=== PATIENT | female | born 1935 | race Two or more races ===

== ENCOUNTER 2016-02-25 09:51 | Emergency (ER) | payer OTHER ==
[~2016-02-25] VITALS: Ht 157.5 cm; Wt 63.5 kg
[2016-02-25 11:35] LABS: Basophils # (auto) 0 uL; Basophils % (auto) 0.6 % (0.0-2.0); Eosinophils # (auto) 0.4 uL; Eosinophils % (auto) 4.8 % (0.0-7.0); Hematocrit 41.3 % (36.0-46.0); Hemoglobin 13.9 g/dL (12.2-16.2); Lymphocytes # (auto) 1.6 uL; Lymphocytes % (auto) 20.8 % (10.0-50.0); Mean Corpuscular Hemoglobin 31.1 pg (28.0-32.0); Mean Corpuscular Hgb Conc. 33.5 g/dL (32.0-36.0); Mean Corpuscular Volume 92.6 fL (80.0-100.0); Mean Platelet Volume 8.4 fL (7.4-10.4); Monocytes # (auto) 0.5 uL; Monocytes % (auto) 6.3 % (0.0-12.0); Neutrophils # (auto) 5.3 uL; Neutrophils % (auto) 67.5 % (37.0-80.0); Platelet Count (auto) 372 10^3/uL (140-450); Red Cell Distribution Width 13.2 % (11.6-16.0); White Blood Cell 7.9 10^3/uL (4.4-10.8)
[2016-02-25 11:55] VITALS: BP 145/72
== END 2016-02-25 12:15 | disposition home or self-care (01) ==
LOC: ER 09:52
DX: S39.012A Strain of muscle, fascia and tendon of lower back, initial encounter (principal); E78.5 Hyperlipidemia, unspecified; I10 Essential (primary) hypertension; G89.29 Other chronic pain; K51.90 Ulcerative colitis, unspecified, without complications; X58.XXXA Exposure to other specified factors, initial encounter; Y93.89 Activity, other specified; Y99.8 Other external cause status; Y92.89 Other specified places as the place of occurrence of the external cause
CPT/HCPCS: 36415; 85025; 93005

== ENCOUNTER → 2016-07-02 | Outpatient (CLI) | payer OTHER ==
[2016-07-02 09:12] LABS: Basophils # (auto) 0 uL; Basophils % (auto) 0.4 % (0.0-2.0); Eosinophils # (auto) 0.3 uL; Eosinophils % (auto) 3.9 % (0.0-7.0); Hematocrit 40.9 % (36.0-46.0); Hemoglobin 13.9 g/dL (12.2-16.2); Lymphocytes # (auto) 1.3 uL; Lymphocytes % (auto) 18.5 % (10.0-50.0); Mean Corpuscular Hemoglobin 31.6 pg (28.0-32.0); Mean Corpuscular Hgb Conc. 34.2 g/dL (32.0-36.0); Mean Corpuscular Volume 92.4 fL (80.0-100.0); Mean Platelet Volume 9.2 fL (7.4-10.4); Monocytes # (auto) 0.4 uL; Monocytes % (auto) 6.2 % (0.0-12.0); Neutrophils # (auto) 5.1 uL; Platelet Count (auto) 346 10^3/uL (140-450); Red Cell Distribution Width 12.6 % (11.6-16.0); White Blood Cell 7.2 10^3/uL (4.4-10.8)
[2016-07-02 09:26] LABS: Urine Bilirubin Negative (Negative); Urine Blood Negative /uL (Negative); Urine Color Yellow (Yellow); Urine Glucose Normal (Normal); Urine Ketone Negative (Negative); Urine Mucus FEW (None Seen); Urine Nitrite Negative (Negative); Urine RBC <1 /hpf (0 - 4); Urine Squamous Epithelial Cell FEW /hpf (<5); Urine Urobilinogen Normal (Negative); Urine pH 7.5 (5.0-8.0)
[2016-07-02 09:34] LABS: BUN/Creatinine Ratio 12.8; Bilirubin, Total 0.4 mg/dL (0.2-1.0); Calcium 9.5 mg/dL (8.5-10.1); Potassium 4.1 mmol/L (3.5-5.1); Total Protein 7.8 g/dL (6.4-8.2)
== END | disposition home or self-care (01) ==
LOC: LAB 08:05
PROVIDERS: ATTEND Family Medicine
DX: I10 Essential (primary) hypertension (principal); E78.5 Hyperlipidemia, unspecified
CPT/HCPCS: 36415; 80053; 80061; 81001; 85025

== ENCOUNTER 2016-12-15 07:52 | Day surgery (SDC) | payer OTHER ==
[2016-12-12 10:23] LABS: INR 1.02 (0.9-1.15); Partial Thromboplastin Time 29.2 sec (22.64-33.71); Prothrombin Time 11.1 sec (9.37-12.3)
[2016-12-12 10:39] LABS: Basophils # (auto) 0 uL; Basophils % (auto) 0.6 % (0.0-2.0); Eosinophils # (auto) 0.2 uL; Eosinophils % (auto) 3.2 % (0.0-7.0); Hematocrit 37.9 % (36.0-46.0); Hemoglobin 13.3 g/dL (12.2-16.2); Lymphocytes # (auto) 1.8 uL; Lymphocytes % (auto) 26.4 % (10.0-50.0); Mean Corpuscular Hemoglobin 32.7 pg (28.0-32.0); Mean Corpuscular Hgb Conc. 35.2 g/dL (32.0-36.0); Mean Corpuscular Volume 92.9 fL (80.0-100.0); Mean Platelet Volume 8.8 fL (6.9-10.8); Monocytes # (auto) 0.6 uL; Monocytes % (auto) 8.4 % (0.0-12.0); Neutrophils # (auto) 4.3 uL; Neutrophils % (auto) 61.4 % (37.0-80.0); Nucleated Red Blood Cells % 0.1 %; Platelet Count (auto) 307 10^3/uL (140-450); Red Cell Distribution Width 12.7 % (11.8-14.3)
[~2016-12-15] VITALS: Ht 157.5 cm; Wt 62.6 kg
[~2016-12-15 07:52] MED LIST: HYDR12.56 PO; LOSA50TA6 PO; LOVA20TA4 PO
[2016-12-15] MEDS ORDERED: SODIUM CHLORIDE LOCK 10 ML ONE (08:10)
[2016-12-15] MEDS ORDERED: diphenhdrAMINE HCL 50 MG/1 ML VL ONE (08:11)
[2016-12-15] MEDS: fentaNYL CITRATE 100 MCG/2 ML VL ONE ×2 (09:42→09:48)
[2016-12-15] MEDS: MIDAZOLAM HCL 5 MG/ML-1ML VIAL ONE ×2 (09:42→09:48)
[2016-12-15 10:25] VITALS: BP 131/72
== END 2016-12-15 10:28 | disposition home or self-care (01) ==
LOC: GI 07:52
PROVIDERS: ATTEND Internal Medicine Gastroenterology
DX: K64.8 Other hemorrhoids (principal); K57.30 Diverticulosis of large intestine without perforation or abscess without bleeding; Z90.49 Acquired absence of other specified parts of digestive tract
CPT/HCPCS: 36415; 45378; 85025; 85610; 85730; J2250; J3010; J7030; 99152

== ENCOUNTER 2017-09-28 12:59 | Emergency (ER) | payer OTHER ==
[~2017-09-28] VITALS: Ht 157.5 cm; Wt 62.6 kg
[2017-09-28 15:53] LABS: Basophils # (auto) 0 uL; Basophils % (auto) 0.5 % (0.0-2.0); Eosinophils # (auto) 0.2 uL; Hematocrit 38.7 % (36.0-46.0); Hemoglobin 13.6 g/dL (12.2-16.2); Lymphocytes # (auto) 1.7 uL; Lymphocytes % (auto) 20.4 % (10.0-50.0); Mean Corpuscular Hemoglobin 32.9 pg (28.0-32.0); Mean Corpuscular Hgb Conc. 35.1 g/dL (32.0-36.0); Mean Corpuscular Volume 93.9 fL (80.0-100.0); Monocytes # (auto) 0.5 uL; Monocytes % (auto) 6.5 % (0.0-12.0); Neutrophils # (auto) 5.8 uL; Neutrophils % (auto) 70.6 % (37.0-80.0); Nucleated Red Blood Cells % 0.1 %; Platelet Count (auto) 304 10^3/uL (140-450); Red Blood Cells 4.13 10^6/uL (4.0-5.20); Red Cell Distribution Width 12.2 % (11.8-14.3); White Blood Cell 8.1 10^3/uL (4.4-10.8)
[2017-09-28 16:49] LABS: Alanine Aminotransferase 24 U/L (13-56); Albumin 3.9 g/dL (3.4-5.0); Alkaline Phosphatase 70 U/L (45-117); Anion Gap 12 (5-15); Aspartate Aminotransferase 24 U/L (15-37); BUN/Creatinine Ratio 12.2; Bilirubin, Total 0.4 mg/dL (0.2-1.0); Blood Urea Nitrogen 16 mg/dL (7-18); Calcium 8.7 mg/dL (8.5-10.1); Carbon Dioxide 25 mmol/L (21-32); Chloride 99 mmol/L (98-107); GFR African American 50 mL/min; GFR Non-African American 41 mL/min; Glucose 101 mg/dL (74-106); Potassium 3.8 mmol/L (3.5-5.1); Sodium 136 mmol/L (136-145); Total Protein 7.6 g/dL (6.4-8.2)
[2017-09-28 17:12] VITALS: BP 152/74
== END 2017-09-28 17:30 | disposition home or self-care (01) ==
LOC: ER 13:06
DX: F41.9 Anxiety disorder, unspecified (principal); E78.5 Hyperlipidemia, unspecified; I10 Essential (primary) hypertension; Z79.899 Other long term (current) drug therapy
CPT/HCPCS: 36415; 70360; 80053; 84484; 85025; 93005

== ENCOUNTER → 2017-12-11 | Outpatient (CLI) | payer OTHER ==
[~2017-12-11] MED LIST changes: +LOSA-46 PO; -LOSA50TA6 PO
== END | disposition home or self-care (01) ==
LOC: LAB 08:33
PROVIDERS: ATTEND Nurse Practitioner
DX: Z12.11 Encounter for screening for malignant neoplasm of colon (principal)
CPT/HCPCS: 82270

== ENCOUNTER 2018-01-05 11:33 | Emergency (ER) | payer OTHER ==
[~2018-01-05] VITALS: Ht 160 cm; Wt 63.5 kg
[2018-01-05 11:56] VITALS: BP 126/77
== END 2018-01-05 12:46 | disposition home or self-care (01) ==
LOC: ER 11:33
DX: B34.9 Viral infection, unspecified (principal); I10 Essential (primary) hypertension; E78.5 Hyperlipidemia, unspecified

== ENCOUNTER → 2019-11-24 | Outpatient (CLI) | payer OTHER ==
[~2019-11-24] MED LIST changes: +APIX5TAB PO; -LOSA-46 PO; +LOSA-69 PO; +MONT5CHW17 PO
[2019-11-24 09:19] LABS: Basophils # (auto) 0 10 ^3/uL (0-0.2); Basophils % (auto) 0.5 % (0.0-2.0); Eosinophils # (auto) 0.3 10 ^3/uL (0-0.8); Eosinophils % (auto) 3.6 % (0.0-7.0); Hematocrit 35.7 % (36.0-46.0); Hemoglobin 12.4 g/dL (12.2-16.2); Lymphocytes # (auto) 1.6 10 ^3/uL (0.4-5.4); Lymphocytes % (auto) 22.3 % (10.0-50.0); Mean Corpuscular Hgb Conc. 34.6 g/dL (32.0-36.0); Mean Corpuscular Volume 92.4 fL (80.0-100.0); Monocytes # (auto) 0.6 10 ^3/uL (0-1.3); Monocytes % (auto) 7.5 % (0.0-12.0); Neutrophils # (auto) 4.9 10 ^3/uL (1.6-8.6); Neutrophils % (auto) 66.1 % (37.0-80.0); Platelet Count (auto) 305 10^3/uL (140-450); Red Blood Cells 3.86 10^6/uL (4.0-5.20); Red Cell Distribution Width 12.6 % (11.8-14.3); White Blood Cell 7.4 10^3/uL (4.4-10.8)
[2019-11-24 09:23] LABS: Urine Bacteria NONE SEEN /hpf (None Seen); Urine Blood Negative /uL (Negative); Urine Hyaline Cast FEW /lpf (0 - 2); Urine Specific Gravity 1.009 (1.001-1.035); Urine WBC 1 /hpf (0 - 5)
[2019-11-24 09:40] LABS: Albumin 3.8 g/dL (3.4-5.0); Calcium 9.2 mg/dL (8.5-10.1)
[2019-11-24 09:43] LABS: Bilirubin, Total 0.6 mg/dL (0.2-1.0); Total Protein 7.4 g/dL (6.4-8.2)
== END | disposition home or self-care (01) ==
LOC: LAB 09:01
PROVIDERS: ATTEND Nurse Practitioner
DX: I10 Essential (primary) hypertension (principal); E78.5 Hyperlipidemia, unspecified
CPT/HCPCS: 36415; 80053; 80061; 81001; 84443; 85025

== ENCOUNTER → 2020-07-03 | Outpatient (CLI) | payer OTHER ==
[~2020-07-03] MED LIST changes: -MONT5CHW17 PO; +MONT5CHW23 PO
[2020-07-03 07:30] LABS: Basophils # (auto) 0 10 ^3/uL (0-0.2); Basophils % (auto) 0.6 % (0.0-2.0); Eosinophils # (auto) 0.2 10 ^3/uL (0-0.8); Eosinophils % (auto) 3.4 % (0.0-7.0); Hematocrit 36.5 % (36.0-46.0); Hemoglobin 12.9 g/dL (12.2-16.2); Lymphocytes # (auto) 1.9 10 ^3/uL (0.4-5.4); Lymphocytes % (auto) 25.8 % (10.0-50.0); Mean Corpuscular Hemoglobin 32.7 pg (28.0-32.0); Mean Corpuscular Hgb Conc. 35.3 g/dL (32.0-36.0); Mean Corpuscular Volume 92.6 fL (80.0-100.0); Monocytes # (auto) 0.6 10 ^3/uL (0-1.3); Neutrophils # (auto) 4.5 10 ^3/uL (1.6-8.6); Neutrophils % (auto) 62.2 % (37.0-80.0); Platelet Count (auto) 307 10^3/uL (140-450); Red Blood Cells 3.94 10^6/uL (4.0-5.20); White Blood Cell 7.3 10^3/uL (4.4-10.8)
[2020-07-03 07:40] LABS: Urine Bacteria NONE SEEN /hpf (None Seen); Urine Blood Negative /uL (Negative); Urine Mucus FEW (None Seen); Urine WBC 9 /hpf (0 - 5)
[2020-07-03 07:57] LABS: Albumin 3.8 g/dL (3.4-5.0); Calcium 9.1 mg/dL (8.5-10.1); Potassium 4.2 mmol/L (3.5-5.1)
[2020-07-03 08:02] LABS: BUN/Creatinine Ratio 11.3; Bilirubin, Total 0.5 mg/dL (0.2-1.0); Total Protein 7.5 g/dL (6.4-8.2)
== END | disposition home or self-care (01) ==
LOC: LAB 07:17
PROVIDERS: ATTEND Nurse Practitioner
DX: E78.5 Hyperlipidemia, unspecified (principal); I10 Essential (primary) hypertension
CPT/HCPCS: 36415; 80053; 80061; 81001; 85025

== ENCOUNTER → 2021-03-22 | Outpatient (CLI) | payer OTHER ==
[2021-03-22 09:48] LABS: Basophils # (auto) 0 10 ^3/uL (0-0.2); Basophils % (auto) 0.4 % (0.0-2.0); Eosinophils # (auto) 0.2 10 ^3/uL (0-0.8); Eosinophils % (auto) 1.8 % (0.0-7.0); Hematocrit 34.7 % (36.0-46.0); Hemoglobin 11.9 g/dL (12.2-16.2); Lymphocytes # (auto) 1.6 10 ^3/uL (0.4-5.4); Lymphocytes % (auto) 16.2 % (10.0-50.0); Mean Corpuscular Hemoglobin 30.9 pg (28.0-32.0); Mean Corpuscular Hgb Conc. 34.4 g/dL (32.0-36.0); Mean Corpuscular Volume 89.9 fL (80.0-100.0); Monocytes # (auto) 0.7 10 ^3/uL (0-1.3); Monocytes % (auto) 7.3 % (0.0-12.0); Neutrophils # (auto) 7.5 10 ^3/uL (1.6-8.6); Neutrophils % (auto) 74.3 % (37.0-80.0); Nucleated Red Blood Cells % 0.1 %; Red Blood Cells 3.86 10^6/uL (4.0-5.20); Red Cell Distribution Width 13.3 % (11.8-14.3); White Blood Cell 10.1 10^3/uL (4.4-10.8)
[2021-03-22 09:52] LABS: Potassium 4.3 mmol/L (3.5-5.1)
[2021-03-22 10:04] LABS: Albumin 3.3 g/dL (3.4-5.0); BUN/Creatinine Ratio 7.1; Bilirubin, Total 0.4 mg/dL (0.2-1.0); CRP High Sensitivity 3.63 mg/dL (< 0.3); Calcium 8.9 mg/dL (8.5-10.1); Total Protein 7.2 g/dL (6.4-8.2)
== END | disposition home or self-care (01) ==
LOC: LAB 07:56
PROVIDERS: ATTEND Internal Medicine Rheumatology
DX: M05.79 Rheumatoid arthritis with rheumatoid factor of multiple sites without organ or systems involvement (principal); M35.3 Polymyalgia rheumatica; R94.5 Abnormal results of liver function studies
CPT/HCPCS: 36415; 80053; 85025; 85652; 86141; 86200; 86431; 86704; 87340; 87902

== ENCOUNTER → 2021-04-01 | Outpatient (CLI) | payer OTHER | END | disposition home or self-care (01) | LOC: XYW 08:29 | PROVIDERS: ATTEND Internal Medicine | DX: I08.1 Rheumatic disorders of both mitral and tricuspid valves (principal) | CPT/HCPCS: 93306 ==

== ENCOUNTER → 2021-07-29 | Outpatient (CLI) | payer OTHER ==
[2021-07-29 09:50] LABS: Basophils # (auto) 0.1 10 ^3/uL (0-0.2); Basophils % (auto) 0.6 % (0.0-2.0); Eosinophils # (auto) 0.1 10 ^3/uL (0-0.8); Hematocrit 34.3 % (36.0-46.0); Hemoglobin 11.9 g/dL (12.2-16.2); Lymphocytes # (auto) 1.2 10 ^3/uL (0.4-5.4); Lymphocytes % (auto) 12.1 % (10.0-50.0); Mean Corpuscular Hgb Conc. 34.8 g/dL (32.0-36.0); Mean Corpuscular Volume 94.7 fL (80.0-100.0); Monocytes # (auto) 0.4 10 ^3/uL (0-1.3); Monocytes % (auto) 3.7 % (0.0-12.0); Neutrophils # (auto) 8.3 10 ^3/uL (1.6-8.6); Neutrophils % (auto) 82.6 % (37.0-80.0); Red Blood Cells 3.62 10^6/uL (4.0-5.20); Red Cell Distribution Width 16.9 % (11.8-14.3); White Blood Cell 10.1 10^3/uL (4.4-10.8)
[2021-07-29 10:13] LABS: Albumin 3.6 g/dL (3.4-5.0); Anion Gap 7 (5-15); Blood Urea Nitrogen 18 mg/dL (7-18); CRP High Sensitivity < 0.02 mg/dL (< 0.3); Calcium 8.5 mg/dL (8.5-10.1); Carbon Dioxide 25 mmol/L (21-32); Chloride 108 mmol/L (98-107); Glucose 111 mg/dL (74-106); Potassium 4.4 mmol/L (3.5-5.1); Sodium 140 mmol/L (136-145)
[2021-07-29 10:16] LABS: Alanine Aminotransferase 23 U/L (13-56); Alkaline Phosphatase 59 U/L (45-117); Aspartate Aminotransferase 19 U/L (15-37); BUN/Creatinine Ratio 10.9; Bilirubin, Total 0.4 mg/dL (0.2-1.0); GFR African American 38 mL/min; GFR Non-African American 31 mL/min; Total Protein 6.5 g/dL (6.4-8.2)
== END | disposition home or self-care (01) ==
LOC: LAB 09:35
PROVIDERS: ATTEND Internal Medicine Rheumatology
DX: L40.50 Arthropathic psoriasis, unspecified (principal)
CPT/HCPCS: 36415; 80053; 85025; 85652; 86141

== ENCOUNTER → 2021-08-05 | Outpatient (CLI) | payer OTHER ==
[2021-08-05 09:15] LABS: Basophils # (auto) 0.1 10 ^3/uL (0-0.2); Basophils % (auto) 0.6 % (0.0-2.0); Eosinophils # (auto) 0.1 10 ^3/uL (0-0.8); Eosinophils % (auto) 1.4 % (0.0-7.0); Hematocrit 36.4 % (36.0-46.0); Hemoglobin 12.8 g/dL (12.2-16.2); Lymphocytes # (auto) 1.9 10 ^3/uL (0.4-5.4); Lymphocytes % (auto) 19.9 % (10.0-50.0); Mean Corpuscular Hemoglobin 33.2 pg (28.0-32.0); Mean Corpuscular Hgb Conc. 35.2 g/dL (32.0-36.0); Mean Corpuscular Volume 94.2 fL (80.0-100.0); Monocytes # (auto) 0.4 10 ^3/uL (0-1.3); Monocytes % (auto) 3.9 % (0.0-12.0); Neutrophils % (auto) 74.2 % (37.0-80.0); Red Blood Cells 3.86 10^6/uL (4.0-5.20); Red Cell Distribution Width 16.6 % (11.8-14.3); White Blood Cell 9.4 10^3/uL (4.4-10.8)
[2021-08-05 09:27] LABS: Urine Bacteria NONE SEEN /hpf (None Seen); Urine Blood Negative /uL (Negative); Urine Specific Gravity 1.006 (1.001-1.035); Urine WBC <1 /hpf (0 - 5)
[2021-08-05 09:57] LABS: Potassium 3.9 mmol/L (3.5-5.1)
[2021-08-05 10:06] LABS: Albumin 3.6 g/dL (3.4-5.0); Bilirubin, Total 0.5 mg/dL (0.2-1.0); Calcium 9.2 mg/dL (8.5-10.1); Total Protein 6.8 g/dL (6.4-8.2)
== END | disposition home or self-care (01) ==
LOC: LAB 08:53
PROVIDERS: ATTEND Nurse Practitioner
DX: E78.5 Hyperlipidemia, unspecified (principal); I10 Essential (primary) hypertension
CPT/HCPCS: 36415; 80053; 80061; 81001; 85025

== ENCOUNTER → 2021-08-20 | Outpatient (CLI) | payer OTHER ==
[~2021-08-20] VITALS: Ht 160 cm; Wt 61.2 kg
[~2021-08-20] MED LIST changes: +ADENOSINE 51 MG in GIVE UN-DILUTED 0 ML IV STA
[2021-08-20 10:18] VITALS: BP 129/54
== END | disposition home or self-care (01) ==
LOC: XYW 08:47
PROVIDERS: ATTEND Internal Medicine
DX: I47.1 Supraventricular tachycardia (principal); I49.9 Cardiac arrhythmia, unspecified; I10 Essential (primary) hypertension
CPT/HCPCS: 78452; 93017; A9500; J0153

== ENCOUNTER → 2021-10-29 | Outpatient (CLI) | payer OTHER ==
[~2021-10-29] MED LIST changes: -ADENOSINE 51 MG in GIVE UN-DILUTED 0 ML IV STA
[2021-10-29 10:30] LABS: Basophils # (auto) 0.1 10 ^3/uL (0-0.2); Basophils % (auto) 0.9 % (0.0-2.0); Eosinophils # (auto) 0.2 10 ^3/uL (0-0.8); Eosinophils % (auto) 1.9 % (0.0-7.0); Hematocrit 37.6 % (36.0-46.0); Hemoglobin 12.6 g/dL (12.2-16.2); Lymphocytes # (auto) 1.7 10 ^3/uL (0.4-5.4); Mean Corpuscular Hemoglobin 32.7 pg (28.0-32.0); Mean Corpuscular Hgb Conc. 33.5 g/dL (32.0-36.0); Mean Corpuscular Volume 97.6 fL (80.0-100.0); Monocytes # (auto) 0.6 10 ^3/uL (0-1.3); Monocytes % (auto) 6.3 % (0.0-12.0); Neutrophils # (auto) 7.7 10 ^3/uL (1.6-8.6); Neutrophils % (auto) 74.9 % (37.0-80.0); Red Blood Cells 3.85 10^6/uL (4.0-5.20); Red Cell Distribution Width 13.4 % (11.8-14.3); White Blood Cell 10.3 10^3/uL (4.4-10.8)
[2021-10-29 10:53] LABS: Albumin 3.8 g/dL (3.4-5.0); Anion Gap 6 (5-15); Blood Urea Nitrogen 15 mg/dL (7-18); Calcium 8.8 mg/dL (8.5-10.1); Carbon Dioxide 28 mmol/L (21-32); Chloride 106 mmol/L (98-107); Glucose 100 mg/dL (74-106); Potassium 4.1 mmol/L (3.5-5.1); Sodium 140 mmol/L (136-145)
[2021-10-29 10:57] LABS: Alanine Aminotransferase 22 U/L (13-56); Alkaline Phosphatase 58 U/L (45-117); Aspartate Aminotransferase 22 U/L (15-37); BUN/Creatinine Ratio 9.3; Bilirubin, Total 0.4 mg/dL (0.2-1.0); CRP High Sensitivity < 0.02 mg/dL (< 0.3); GFR African American 39 mL/min; GFR Non-African American 32 mL/min; Total Protein 6.5 g/dL (6.4-8.2)
== END | disposition home or self-care (01) ==
LOC: LAB 09:54
PROVIDERS: ATTEND Internal Medicine Rheumatology
DX: L40.50 Arthropathic psoriasis, unspecified (principal)
CPT/HCPCS: 36415; 80053; 85025; 85652; 86141

== ENCOUNTER → 2022-05-05 | Outpatient (CLI) | payer OTHER ==
[2022-05-05 11:00] LABS: Basophils # (auto) 0.1 10 ^3/uL (0-0.2); Basophils % (auto) 0.6 % (0.0-2.0); Eosinophils # (auto) 0.3 10 ^3/uL (0-0.8); Eosinophils % (auto) 3.6 % (0.0-7.0); Hematocrit 36.5 % (36.0-46.0); Hemoglobin 12.7 g/dL (12.2-16.2); Lymphocytes # (auto) 1.5 10 ^3/uL (0.4-5.4); Mean Corpuscular Hemoglobin 33.1 pg (28.0-32.0); Mean Corpuscular Hgb Conc. 34.7 g/dL (32.0-36.0); Mean Corpuscular Volume 95.4 fL (80.0-100.0); Monocytes # (auto) 0.6 10 ^3/uL (0-1.3); Monocytes % (auto) 6.5 % (0.0-12.0); Neutrophils % (auto) 73.3 % (37.0-80.0); Red Blood Cells 3.83 10^6/uL (4.0-5.20); Red Cell Distribution Width 13.2 % (11.8-14.3); White Blood Cell 9.6 10^3/uL (4.4-10.8)
[2022-05-05 11:47] LABS: Potassium 4.4 mmol/L (3.5-5.1)
[2022-05-05 11:57] LABS: Albumin 3.5 g/dL (3.4-5.0); Bilirubin, Total 0.4 mg/dL (0.2-1.0); Calcium 9.6 mg/dL (8.5-10.1)
[2022-05-05 12:02] LABS: Urine Bacteria NONE SEEN /hpf (None Seen); Urine Blood Negative /uL (Negative); Urine Hyaline Cast MOD /lpf (0 - 2); Urine Mucus FEW (None Seen); Urine Specific Gravity 1.021 (1.001-1.035); Urine WBC 7 /hpf (0 - 5)
== END | disposition home or self-care (01) ==
LOC: LAB 10:01
PROVIDERS: ATTEND Nurse Practitioner
DX: I10 Essential (primary) hypertension (principal); E78.5 Hyperlipidemia, unspecified
CPT/HCPCS: 36415; 80053; 80061; 81001; 84443; 85025

== ENCOUNTER → 2022-06-24 | Outpatient (CLI) | payer OTHER ==
[~2022-06-24] MED LIST changes: +AMLO-489 PO; +ATOR40TA52 PO; +CALC667C PO; +CHOL20007 PO; +FOLI1TAB6 PO; -HYDR12.56 PO; +LORA0.5T19 PO; -LOVA20TA4 PO; +MAGN400T40 PO; +MECL25TA18 PO; +METH2.5T PO; +METO-289 PO; -MONT5CHW23 PO; +POTA-180 PO; +TRAZ100T3 PO
[2022-06-24 11:40] LABS: Basophils # (auto) 0.1 10 ^3/uL (0-0.2); Basophils % (auto) 0.4 % (0.0-2.0); Eosinophils # (auto) 0.3 10 ^3/uL (0-0.8); Eosinophils % (auto) 2.1 % (0.0-7.0); Hemoglobin 11.9 g/dL (12.2-16.2); Lymphocytes # (auto) 1.5 10 ^3/uL (0.4-5.4); Lymphocytes % (auto) 12.4 % (10.0-50.0); Mean Corpuscular Hgb Conc. 34.1 g/dL (32.0-36.0); Mean Corpuscular Volume 96.6 fL (80.0-100.0); Monocytes # (auto) 0.9 10 ^3/uL (0-1.3); Monocytes % (auto) 7.4 % (0.0-12.0); Neutrophils # (auto) 9.3 10 ^3/uL (1.6-8.6); Neutrophils % (auto) 77.7 % (37.0-80.0); Red Blood Cells 3.62 10^6/uL (4.0-5.20); Red Cell Distribution Width 13.5 % (11.8-14.3)
[2022-06-24 14:14] LABS: Potassium 4.7 mmol/L (3.5-5.1)
[2022-06-24 14:19] LABS: Albumin 3.7 g/dL (3.4-5.0); Bilirubin, Total 0.3 mg/dL (0.2-1.0); CRP High Sensitivity 0.33 mg/dL (< 0.3); Calcium 9.1 mg/dL (8.5-10.1); Total Protein 6.9 g/dL (6.4-8.2)
== END | disposition home or self-care (01) ==
LOC: LAB 11:28
PROVIDERS: ATTEND Internal Medicine Rheumatology
DX: L40.50 Arthropathic psoriasis, unspecified (principal); Z79.899 Other long term (current) drug therapy
CPT/HCPCS: 36415; 80053; 85025; 85652; 86141

== ENCOUNTER → 2022-08-29 | Outpatient (CLI) | payer OTHER ==
[~2022-08-29] MED LIST changes: -AMLO-489 PO; +AMLO1TAB22 PO; +FOLI-119 PO; -FOLI1TAB6 PO; +LORA-1120 PO; -LORA0.5T19 PO; -LOSA-69 PO; +LOSA50TA46 PO; +MECL1TAB32 PO; -MECL25TA18 PO; +TRAZ-228 PO; -TRAZ100T3 PO
[2022-08-29 09:54] LABS: Basophils # (auto) 0.2 10 ^3/uL (0-0.2); Basophils % (auto) 3.1 % (0.0-2.0); Eosinophils # (auto) 0.3 10 ^3/uL (0-0.8); Eosinophils % (auto) 4.4 % (0.0-7.0); Hematocrit 36.6 % (36.0-46.0); Hemoglobin 12.6 g/dL (12.2-16.2); Lymphocytes # (auto) 1.3 10 ^3/uL (0.4-5.4); Lymphocytes % (auto) 18.9 % (10.0-50.0); Mean Corpuscular Hemoglobin 32.1 pg (28.0-32.0); Mean Corpuscular Hgb Conc. 34.4 g/dL (32.0-36.0); Mean Corpuscular Volume 93.3 fL (80.0-100.0); Monocytes # (auto) 0.5 10 ^3/uL (0-1.3); Monocytes % (auto) 7.4 % (0.0-12.0); Neutrophils # (auto) 4.6 10 ^3/uL (1.6-8.6); Neutrophils % (auto) 66.2 % (37.0-80.0); Red Blood Cells 3.92 10^6/uL (4.0-5.20); Red Cell Distribution Width 12.8 % (11.8-14.3); White Blood Cell 6.9 10^3/uL (4.4-10.8)
[2022-08-29 10:32] LABS: Albumin 3.7 g/dL (3.4-5.0); Calcium 9.3 mg/dL (8.5-10.1); Potassium 4.3 mmol/L (3.5-5.1)
[2022-08-29 10:38] LABS: BUN/Creatinine Ratio 6.4 (10.0-20.0); Bilirubin, Total 0.8 mg/dL (0.2-1.0); Total Protein 7.1 g/dL (6.4-8.2)
[2022-08-29 10:46] LABS: CRP High Sensitivity 0.02 mg/dL (< 0.3)
== END | disposition home or self-care (01) ==
LOC: LAB 09:26
PROVIDERS: ATTEND Internal Medicine Rheumatology
DX: Z11.1 Encounter for screening for respiratory tuberculosis (principal); L40.50 Arthropathic psoriasis, unspecified; Z79.899 Other long term (current) drug therapy
CPT/HCPCS: 36415; 80053; 85025; 85652; 86141

== ENCOUNTER → 2022-11-05 | Emergency (ER) | payer OTHER ==
[~2022-11-05] VITALS: Ht 152.4 cm; Wt 52.4 kg
[~2022-11-05] MED LIST changes: +ACETAMINOPHEN 500 MG TAB PO ONE; +ONDANSETRON ODT 4 MG TAB PO ONE
[2022-11-05 15:49] VITALS: BP 143/72; PULSE 102; RESP 20; O2SAT 95
== END | disposition left against medical advice (07) ==
LOC: ER 15:37
DX: R50.9 Fever, unspecified (principal); M79.10 Myalgia, unspecified site; R19.7 Diarrhea, unspecified; Z53.21 Procedure and treatment not carried out due to patient leaving prior to being seen by health care provider

== ENCOUNTER → 2023-03-10 | Outpatient (CLI) | payer OTHER ==
[~2023-03-10] MED LIST changes: -ACETAMINOPHEN 500 MG TAB PO ONE; -ONDANSETRON ODT 4 MG TAB PO ONE
[2023-03-10 11:33] LABS: Basophils # (auto) 0.1 10 ^3/uL (0-0.2); Basophils % (auto) 0.8 % (0.0-2.0); Eosinophils # (auto) 0.4 10 ^3/uL (0-0.8); Eosinophils % (auto) 4.9 % (0.0-7.0); Hematocrit 38.4 % (36.0-46.0); Lymphocytes # (auto) 1.6 10 ^3/uL (0.4-5.4); Lymphocytes % (auto) 20.6 % (10.0-50.0); Mean Corpuscular Hemoglobin 31.1 pg (28.0-32.0); Mean Corpuscular Hgb Conc. 33.7 g/dL (32.0-36.0); Mean Corpuscular Volume 92.3 fL (80.0-100.0); Monocytes # (auto) 0.6 10 ^3/uL (0-1.3); Monocytes % (auto) 8.2 % (0.0-12.0); Neutrophils # (auto) 5.2 10 ^3/uL (1.6-8.6); Neutrophils % (auto) 65.5 % (37.0-80.0); Red Blood Cells 4.16 10^6/uL (4.0-5.20); Red Cell Distribution Width 12.5 % (11.8-14.3); White Blood Cell 7.9 10^3/uL (4.4-10.8)
[2023-03-10 12:40] LABS: Alanine Aminotransferase 16 U/L (7-40); Alkaline Phosphatase 105 U/L (46-116); Anion Gap 7 (5-15); Carbon Dioxide 26 mmol/L (20-30); Chloride 105 mmol/L (98-107); Potassium 4.7 mmol/L (3.5-5.1); Sodium 138 mmol/L (136-145)
[2023-03-10 12:42] LABS: Aspartate Aminotransferase 31 U/L (13-40); BUN/Creatinine Ratio 8.8 (10.0-20.0); Blood Urea Nitrogen 13 mg/dL (9-23); Glucose 101 mg/dL (74-106)
[2023-03-10 12:43] LABS: Albumin 4.7 g/dL (3.2-4.8); CRP High Sensitivity 0.02 mg/dL (<1.0)
[2023-03-10 12:45] LABS: Bilirubin, Total 0.5 mg/dL (0.2-1.0); Total Protein 7.3 g/dL (5.7-8.2)
[2023-03-10 13:44] LABS: Free T3 3.15 pg/mL (2.3-4.2); Free T4 (Free Thyroxine) 1.07 ng/dL (0.89-1.76)
== END | disposition home or self-care (01) ==
LOC: LAB 10:31
PROVIDERS: ATTEND Internal Medicine
DX: I10 Essential (primary) hypertension (principal); I48.91 Unspecified atrial fibrillation; I70.0 Atherosclerosis of aorta
CPT/HCPCS: 36415; 80053; 84439; 84443; 84481; 85025; 86141

== ENCOUNTER → 2023-03-17 | Outpatient (CLI) | payer OTHER | END | disposition home or self-care (01) | LOC: XYW 10:37 | PROVIDERS: ATTEND Internal Medicine | DX: I08.0 Rheumatic disorders of both mitral and aortic valves (principal); I50.32 Chronic diastolic (congestive) heart failure | CPT/HCPCS: 93306 ==

== ENCOUNTER → 2023-04-06 | Outpatient (CLI) | payer OTHER ==
[2023-04-06 09:30] LABS: Basophils # (auto) 0.1 10 ^3/uL (0-0.2); Basophils % (auto) 0.7 % (0.0-2.0); Eosinophils # (auto) 0.3 10 ^3/uL (0-0.8); Eosinophils % (auto) 3.3 % (0.0-7.0); Hematocrit 37.9 % (36.0-46.0); Hemoglobin 12.6 g/dL (12.2-16.2); Lymphocytes # (auto) 1.5 10 ^3/uL (0.4-5.4); Lymphocytes % (auto) 18.2 % (10.0-50.0); Mean Corpuscular Hemoglobin 30.9 pg (28.0-32.0); Mean Corpuscular Hgb Conc. 33.2 g/dL (32.0-36.0); Mean Corpuscular Volume 92.9 fL (80.0-100.0); Monocytes # (auto) 0.7 10 ^3/uL (0-1.3); Monocytes % (auto) 8.3 % (0.0-12.0); Neutrophils # (auto) 5.9 10 ^3/uL (1.6-8.6); Neutrophils % (auto) 69.5 % (37.0-80.0); Red Blood Cells 4.07 10^6/uL (4.0-5.20); White Blood Cell 8.5 10^3/uL (4.4-10.8)
[2023-04-06 09:55] LABS: Alanine Aminotransferase 14 U/L (7-40); Albumin 4.3 g/dL (3.2-4.8); Alkaline Phosphatase 89 U/L (46-116); Anion Gap 7 (5-15); Aspartate Aminotransferase 26 U/L (13-40); BUN/Creatinine Ratio 8.6 (10.0-20.0); Bilirubin, Total 0.6 mg/dL (0.2-1.0); Blood Urea Nitrogen 12 mg/dL (9-23); Calcium 9.5 mg/dL (8.5-10.1); Carbon Dioxide 28 mmol/L (20-30); Chloride 104 mmol/L (98-107); Glucose 99 mg/dL (74-106); Potassium 4.1 mmol/L (3.5-5.1); Sodium 139 mmol/L (136-145); Total Protein 6.7 g/dL (5.7-8.2)
== END | disposition home or self-care (01) ==
LOC: LAB 09:11
PROVIDERS: ATTEND Internal Medicine Rheumatology
DX: L40.50 Arthropathic psoriasis, unspecified (principal); Z79.899 Other long term (current) drug therapy
CPT/HCPCS: 36415; 80053; 85025

== ENCOUNTER 2023-06-08 13:24 | Emergency (ER) | payer OTHER ==
[~2023-06-08] VITALS: Ht 154.9 cm; Wt 57.7 kg
[~2023-06-08 13:24] MED LIST changes: +LOSA-534 PO; -LOSA50TA46 PO; +MECL-90 PO; -MECL1TAB32 PO
[2023-06-08 13:40] VITALS: BP 152/72; PULSE 75; RESP 18; O2SAT 97
[2023-06-08] MEDS ORDERED: NITROGLYCERIN 0.4 MG SL TAB SL ONE (14:00)
[2023-06-08 14:39] LABS: Basophils # (auto) 0.1 10 ^3/uL (0-0.2); Basophils % (auto) 0.7 % (0.0-2.0); Eosinophils # (auto) 0.3 10 ^3/uL (0-0.8); Eosinophils % (auto) 3.7 % (0.0-7.0); Hemoglobin 12.2 g/dL (12.2-16.2); Lymphocytes # (auto) 1.7 10 ^3/uL (0.4-5.4); Lymphocytes % (auto) 23.3 % (10.0-50.0); Mean Corpuscular Hemoglobin 31.3 pg (28.0-32.0); Mean Corpuscular Hgb Conc. 33.8 g/dL (32.0-36.0); Mean Corpuscular Volume 92.7 fL (80.0-100.0); Monocytes # (auto) 0.7 10 ^3/uL (0-1.3); Monocytes % (auto) 9.1 % (0.0-12.0); Neutrophils # (auto) 4.7 10 ^3/uL (1.6-8.6); Neutrophils % (auto) 63.2 % (37.0-80.0); Nucleated Red Blood Cells % 0.1 %; Red Blood Cells 3.89 10^6/uL (4.0-5.20); Red Cell Distribution Width 13.1 % (11.8-14.3); White Blood Cell 7.4 10^3/uL (4.4-10.8)
[2023-06-08 14:50] LABS: Chloride 105 mmol/L (98-107); Potassium 4.3 mmol/L (3.5-5.1); Sodium 136 mmol/L (136-145)
[2023-06-08 14:51] LABS: Anion Gap 3 (5-15); Calcium 9.5 mg/dL (8.7-10.4); Carbon Dioxide 28 mmol/L (20-30)
[2023-06-08 14:56] LABS: Glucose 142 mg/dL (74-106)
[2023-06-08 15:38] LABS: BUN/Creatinine Ratio 9.2 (10.0-20.0); Blood Urea Nitrogen 13 mg/dL (9-23)
== END 2023-06-08 21:17 | disposition left against medical advice (07) ==
LOC: ER 13:24
DX: G45.9 Transient cerebral ischemic attack, unspecified (principal); R07.89 Other chest pain; I10 Essential (primary) hypertension; E78.5 Hyperlipidemia, unspecified; Z86.73 Personal history of transient ischemic attack (TIA), and cerebral infarction without residual deficits
CPT/HCPCS: 36415; 70450; 71045; 80048; 85025

== ENCOUNTER → 2023-06-30 | Outpatient (CLI) | payer OTHER ==
[2023-06-30 09:05] LABS: Basophils # (auto) 0 10 ^3/uL (0-0.2); Basophils % (auto) 0.5 % (0.0-2.0); Eosinophils # (auto) 0.3 10 ^3/uL (0-0.8); Eosinophils % (auto) 2.8 % (0.0-7.0); Hematocrit 38.4 % (36.0-46.0); Hemoglobin 12.6 g/dL (12.2-16.2); Lymphocytes # (auto) 1.7 10 ^3/uL (0.4-5.4); Lymphocytes % (auto) 17.7 % (10.0-50.0); Mean Corpuscular Hemoglobin 30.7 pg (28.0-32.0); Mean Corpuscular Hgb Conc. 32.9 g/dL (32.0-36.0); Mean Corpuscular Volume 93.2 fL (80.0-100.0); Monocytes # (auto) 0.8 10 ^3/uL (0-1.3); Monocytes % (auto) 8.3 % (0.0-12.0); Neutrophils # (auto) 6.7 10 ^3/uL (1.6-8.6); Neutrophils % (auto) 70.7 % (37.0-80.0); Red Blood Cells 4.12 10^6/uL (4.0-5.20); Red Cell Distribution Width 13.3 % (11.8-14.3); White Blood Cell 9.5 10^3/uL (4.4-10.8)
[2023-06-30 09:36] LABS: Erythrocyte Sedimentation Rate 9 mm/hr (0-20)
[2023-06-30 09:49] LABS: Alanine Aminotransferase 12 U/L (7-40); Albumin 4.5 g/dL (3.2-4.8); Alkaline Phosphatase 88 U/L (46-116); Anion Gap 3 (5-15); Aspartate Aminotransferase 26 U/L (13-40); BUN/Creatinine Ratio 7.6 (10.0-20.0); Bilirubin, Total 0.7 mg/dL (0.2-1.0); Blood Urea Nitrogen 11 mg/dL (9-23); CRP High Sensitivity 0.03 mg/dL (<1.0); Calcium 9.9 mg/dL (8.5-10.1); Carbon Dioxide 30 mmol/L (20-30); Chloride 104 mmol/L (98-107); Glucose 101 mg/dL (74-106); Potassium 4.4 mmol/L (3.5-5.1); Sodium 137 mmol/L (136-145); Total Protein 6.9 g/dL (5.7-8.2)
== END | disposition home or self-care (01) ==
LOC: LAB 08:51
PROVIDERS: ATTEND Internal Medicine Rheumatology
DX: L40.50 Arthropathic psoriasis, unspecified (principal); Z79.899 Other long term (current) drug therapy
CPT/HCPCS: 36415; 80053; 85025; 85652; 86141

== ENCOUNTER → 2023-08-31 | Outpatient (CLI) | payer OTHER | END | disposition home or self-care (01) | LOC: LAB 08:29 | PROVIDERS: ATTEND Psychiatry & Neurology Neurology | DX: G45.9 Transient cerebral ischemic attack, unspecified (principal); Z86.73 Personal history of transient ischemic attack (TIA), and cerebral infarction without residual deficits | CPT/HCPCS: 36415; 80061; 82565; 83036; 84520 ==

== ENCOUNTER → 2023-10-05 | Outpatient (CLI) | payer OTHER ==
[2023-10-05 10:33] LABS: Basophils # (auto) 0.1 10 ^3/uL (0-0.2); Basophils % (auto) 0.8 % (0.0-2.0); Eosinophils # (auto) 0.4 10 ^3/uL (0-0.8); Eosinophils % (auto) 4.6 % (0.0-7.0); Hematocrit 37.2 % (36.0-46.0); Hemoglobin 12.5 g/dL (12.2-16.2); Lymphocytes # (auto) 1.7 10 ^3/uL (0.4-5.4); Lymphocytes % (auto) 22.5 % (10.0-50.0); Mean Corpuscular Hemoglobin 31.4 pg (28.0-32.0); Mean Corpuscular Hgb Conc. 33.6 g/dL (32.0-36.0); Mean Corpuscular Volume 93.3 fL (80.0-100.0); Monocytes # (auto) 0.8 10 ^3/uL (0-1.3); Monocytes % (auto) 10.7 % (0.0-12.0); Neutrophils # (auto) 4.7 10 ^3/uL (1.6-8.6); Neutrophils % (auto) 61.4 % (37.0-80.0); Platelet Count (auto) 240 10^3/uL (140-450); Red Blood Cells 3.99 10^6/uL (4.0-5.20); White Blood Cell 7.7 10^3/uL (4.4-10.8)
[2023-10-05 11:07] LABS: Alanine Aminotransferase 11 U/L (7-40); Albumin 4.2 g/dL (3.2-4.8); Alkaline Phosphatase 88 U/L (46-116); Anion Gap 1 (5-15); Aspartate Aminotransferase 16 U/L (13-40); BUN/Creatinine Ratio 9.1 (10.0-20.0); Bilirubin, Total 0.4 mg/dL (0.2-1.0); Blood Urea Nitrogen 14 mg/dL (9-23); CRP High Sensitivity 0.04 mg/dL (<1.0); Calcium 9.5 mg/dL (8.7-10.4); Carbon Dioxide 30 mmol/L (20-30); Chloride 104 mmol/L (98-107); Glucose 102 mg/dL (74-106); Potassium 4.7 mmol/L (3.5-5.1); Sodium 135 mmol/L (136-145)
[2023-10-05 11:08] LABS: Total Protein 6.5 g/dL (5.7-8.2)
[2023-10-05 12:07] LABS: Erythrocyte Sedimentation Rate 12 mm/hr (0-20)
== END | disposition home or self-care (01) ==
LOC: LAB 10:15
PROVIDERS: ATTEND Internal Medicine Rheumatology
DX: L40.50 Arthropathic psoriasis, unspecified (principal); Z79.899 Other long term (current) drug therapy
CPT/HCPCS: 36415; 80053; 85025; 85652; 86141

== ENCOUNTER → 2024-01-06 | Outpatient (CLI) | payer OTHER | END | disposition home or self-care (01) | LOC: LAB 09:21 | PROVIDERS: ATTEND Nurse Practitioner | DX: I10 Essential (primary) hypertension (principal) | CPT/HCPCS: 36415; 82565; 84520 ==

== ENCOUNTER 2024-01-14 14:26 | Emergency (ER) | payer OTHER ==
[~2024-01-14] VITALS: Ht 157.5 cm; Wt 62.4 kg
--- NOTE | 2024-01-14 15:22 | ED.PDOC ---
GI ASSESSMENT HPI Comments 88y F who presents to the ED for chief complaint of rectal bleeding. Pt states she has been having rectal bleeding since earlier this AM unknown time. Pt states her bleeding has been bright red blood, with associated constipation. Pt otherwise denies any nausea, vomiting, diarrhea, fever, cough, chills, dysuria, hematuria, headache or dizziness. Pt otherwise denies any other symptoms. Pt denies any recent sick contacts. Pt otherwise has noted stable vitals in the ED. Pt denies any other symptoms at this time. Chief Complaint: rectal bleeding Time Seen by MD: 15:17 Primary Care Provider: LESS Reviewed Notes: Nurses Notes, Medications Allergies: Coded Allergies: NO KNOWN ALLERGIES (Unverified , 08/20/21) Home Meds Active Scripts Apixaban Base (ELIQUIS) 5 Mg Tab, 5 MG PO BID for 30 Days, #60 TAB Prov:JOSE ANGEL PRASAD MD 04/05/19 Reported Medications Cholecalciferol (VITAMIN D3) 2,000 Unit Tab, 1 TAB PO DAILY for supplement 05/08/22 Magnesium Oxide (MAGNESIUM OXIDE) 400 Mg Tab, 1 TAB PO DAILY for supplement 05/08/22 Calcium Acetate (Phosphate Bin (Calcium Acetate) 667 Mg Cap, 667 MG PO BID for bone health 05/08/22 Folic Acid (Folic Acid) 1 Mg Tab, 1 MG PO DAILY for supplement for 30 Days, MG 05/08/22 Meclizine Hcl (Meclizine Hcl) 25 Mg Tab, 25 MG PO BIDP PRN for DIZZINESS for 30 Days, MG 05/08/22 Potassium Chloride (Potassium Chloride ER) 20 Meq Tab, 20 MEQ PO HS for muscle cramps, TAB 05/08/22 Lorazepam (Lorazepam) 0.5 Mg Tab, 0.5 MG PO HS for sleep/anxiety, TAB 05/08/22 Trazodone Hcl (Trazodone Hcl) 100 Mg Tab, 100 MG PO HS PRN for FOR INSOMNIA, MG 05/08/22 Atorvastatin Calcium (ATORVASTATIN CALCIUM) 40 Mg Tab, 1 TAB PO DAILY for chol esterol 05/08/22 Metoprolol Succinate (Metoprolol Succinate Er) 50 Mg Tab, 50 MG PO DAILY for htn for 30 Days, MG 05/08/22 Amlodipine Besylate (Amlodipine Besylate) 5 Mg Tab, 5 MG PO DAILY for htn 05/08/22 Methotrexate (Methotrexate) 2.5 Mg Tab, 2.5 MG PO 3 tabs/week for psoriatic arthritis 05/08/22 Losartan Potassium (Losartan Potassium) 50 Mg Tab, 50 MG PO DAILY for htn 12/12/16 Information Source: Patient Mode of Arrival: Ambulatory Brought in by: self Timing: Hours Duration: Since onset Prehospital treatment: None Vomitus: None Stool: Normal Severity: Moderate Recent: None Recent Hx of: None Modifying Factors: Nothing Associated sign and symptoms: Hematochezia Past Medical History PAST MEDICAL HISTORY: Anxiety, CVA, High Lipids, HTN Surgical History: , 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 Family History Family History: Family hx of Cancer Social History Smoker: Non-Smoker Alcohol: Denies ETOH Use Drugs: Denies Drug Use Lives In: Home Constitutional: denies: chills, diaphoresis, fatigue, fever, malaise, sweats, weakness, others EENTM: denies: blurred vision, double vision, ear bleeding, ear discharge, ear drainage, ear pain, ear ringing, eye pain, eye redness, hearing loss, mouth pain, mouth swelling, nasal discharge, nose bleeding, nose congestion, nose pain, photophobia, tearing, throat pain, throat swelling, voice changes, others Respiratory: denies: cough, hemoptysis, orthopnea, SOB at rest, shortness of breath, SOB with excertion, stridor, wheezing, others Cardiovascular: denies: chest pain, dizzy spells, diaphoresis, Dyspnea on exertion, edema, irregular heart beat, left arm pain, lightheadedness, palpitations, PND, syncope, others Gastrointestinal: reports: constipated, rectal bleeding; denies: abdomen distended, abdominal pain, blood streaked bowels, diarrhea, dysphagia, difficul ty swallowing, hematemesis, melena, nausea, poor appetite, poor fluid intake, rectal pain, vomiting, others Genitourinary: denies: abnormal vagina bleeding, burning, dyspareunia, dysuria, flank pain, frequency, hematuria, incontinence, pain, , vagina discharge, urgency, others Neurological: denies: dizziness, fainting, headache, left sided numbness, left sided weakness, numbness, paresthesia, pre-existing deficit, right sided numbness, right sided weakness, seizure, speech problems, tingling, tremors, weakness, others Musculoskeletal: denies: back pain, gout, joint pain, joint swelling, muscle pain, muscle stiffness, neck pain, others Integumetry: denies: bruises, change in color, change in hair/nails, dryness, laceration, lesions, lumps, rash, wounds, others Allergic/Immunocompromised: denies: Difficulty Healing, Frequent Infections, Hives, Itching, others Hematologic/Lymphatic: denies: anemia, blood clots, easy bleeding, easy bruising, swollen glands, others Endocrine: denies: excessive hunger, excessive sweating, excessive thirst, excessive urination, flushing, intolerance to cold, intolerance to heat, unexplained weight gain, unexplained weight loss, others Psychiatric: denies: anxiety, bipolar disorder, depression, hopeless, panic disorder, schizophrenia, sleepless, suicidal, others All Other Systems: Reviewed and Negative Physical Exam General Appearance: No Apparent Distress HEENT: Normal ENT Inspection, Pharynx Normal, TMs Normal Neck: Full Range of Motion, Non-Tender, Normal, Normal Inspection Respiratory: Chest Non-Tender, Lungs Clear, No Accessory Muscle Use, No Respiratory Distress, Normal Breath Sounds Cardiovascular: No Edema, No JVD, No Murmur, No Gallop, Normal Peripheral Pul ses, Regular Rate/Rhythm Breast Exam: Deferred Gastrointestinal: No Organomegaly, Non Tender, No Pulsatile Mass, Normal Bowel Sounds, Soft Genitalia: Deferred Pelvic: Deferred Rectal: Deferred Extremities: No calf tenderness, Normal capillary refill, Normal inspection, Normal range of motion, Non-tender, No pedal edema Musculoskeletal : Apperance: Normal Neurologic: Alert, senior controller II-XII nml as Tested, No Motor Deficits, Normal Affect, Normal Mood, No Sensory Deficits Cerebellar Function: Normal Reflexes: Normal Skin: Dry, Normal Color, Warm Lymphatic: No Adenopathy Was a procedure done? Was a procedure done?: No GI differential Dx Differential Diagnosis: Constipation, Diverticular disease, Gastritis/PUD, Gastroenteritis, GI hemorrhage, Inflammatory BD, Stress Ulcer X-Ray, Labs, Meds, VS Vital Signs Date Time Temp Pulse Resp B/P (MAP) Pulse Ox O2 Delivery O2 Flow Rate FiO2 01/14/24 16:34 99.1 81 16 182/81 (114) 93 99.1 01/14/24 15:22 98.4 89 16 155/77 (103) 92 Lab Test 01/14/24 15:24 Range/Units White Blood Count 13.6 H 4.4-10.8 10^3/uL Red Blood Count 4.43 4.0-5.20 10^6/uL Hemoglobin 14.0 12.2-16.2 g/dL Hematocrit 41.3 36.0-46.0 % Mean Corpuscular Volume 93.4 80.0-100.0 fL Mean Corpuscular Hemoglobin 31.6 28.0-32.0 pg Mean Corpuscular Hemoglobin Concent 33.8 32.0-36.0 g/dL Red Cell Distribution Width 12.5 11.8-14.3 % Platelet Count 336 140-450 10^3/uL Mean Platelet Volume 8.6 6.9-10.8 fL Neutrophils (%) (Auto) 85.1 H 37.0-80.0 % Lymphocytes (%) (Auto) 7.9 L 10.0-50.0 % Monocytes (%) (Auto) 6.6 0.0-12.0 % Eosinophils (%) (Auto) 0.1 0.0-7.0 % Basophils (%) (Auto) 0.3 0.0-2.0 % Neutrophils # (Auto) 11.6 H 1.6-8.6 10 ^3/uL Lymphocytes # (Auto) 1.1 0.4-5.4 10 ^3/uL Monocytes # (Auto) 0.9 0-1.3 10 ^3/uL Eosinophils # (Auto) 0 0-0.8 10 ^3/uL Basophils # (Auto) 0 0-0.2 10 ^3/uL Nucleated Red Blood Cells 0.1 % Sodium Level 132 L 136-145 mmol/L Potassium Level 4.6 3.5-5.1 mmol/L Chloride Level 97 L 98-107 mmol/L Carbon Dioxide Level 27 20-31 mmol/L Anion Gap 8 5-15 Blood Urea Nitrogen 10 9-23 mg/dL Creatinine 1.41 H 0.550-1.02 mg/dL Glomerular Filtration Rate Calc 36 >90 mL/min BUN/Creatinine Ratio 7.1 L 10.0-20.0 Serum Glucose 129 H 74-106 mg/dL Calcium Level 10.3 8.7-10.4 mg/dL Exam: CT CT AB PEL WO CON-NO ORAL OR IV IMPRESSION: 1. Extensive sigmoid diverticulosis and possible chronic diverticulitis. No evidence of acute pericolonic fluid or inflammation. 2. No hydronephrosis or renal calculi. At this time the patient's CBC shows a slightly elevated white blood cell count of 13.6 The rest of the CBC is within normal limits The chemistry panel is within normal limits At this time the patient will follow up with the primary care doctor The patient will return to the emergency department's the condition worsens. The patient was told to follow up with the primary care doctor tomorrow but will be started on the Flagyl. Images Reviewed?: Images reviewed and evaluated by me Time of 1ST Reevaluation: 15:50 Reevaluation 1ST: Unchanged Patient Education/Counseling: Diagnosis, Treatment, Prognosis, Need For Follow Up Family Education/Counseling: No Family Present Departure 1 Departure Time of Disposition: 17:37 Impression: Primary Impression: Diverticulitis large intestine Qualified Codes: K57.33 - Diverticulitis of large intestine without perforation or abscess with bleeding Disposition: 01 HOME / SELF CARE / HOMELESS Condition: Fair Discharged With: Self Critical Care Note Critical Care Time?: No Stability Stability form required: No Heart Score Heart Score: Heart Score Response (Comments) Value History N/A 0 EKG N/A 0 Age N/A 0 Risk Factors N/A 0 Troponin N/A 0 Total 0 I personally scribed for CYNDIE BENSON MD ([email or web address]) on 01/14/24 at 15:22. Electronically submitted by Karmen Daley ([email or web address]). I personally scribed for CYNDIE BENSON MD ([email or web address]) on 01/14/24 at 17:34. Electronically submitted by Karmen Daley ([email or web address]). CYNDIE BENSON MD Jan 14, 2024 15:22
[2024-01-14 15:56] LABS: Basophils # (auto) 0 10 ^3/uL (0-0.2); Basophils % (auto) 0.3 % (0.0-2.0); Eosinophils # (auto) 0 10 ^3/uL (0-0.8); Eosinophils % (auto) 0.1 % (0.0-7.0); Hematocrit 41.3 % (36.0-46.0); Lymphocytes # (auto) 1.1 10 ^3/uL (0.4-5.4); Lymphocytes % (auto) 7.9 % (10.0-50.0); Mean Corpuscular Hemoglobin 31.6 pg (28.0-32.0); Mean Corpuscular Hgb Conc. 33.8 g/dL (32.0-36.0); Mean Corpuscular Volume 93.4 fL (80.0-100.0); Monocytes # (auto) 0.9 10 ^3/uL (0-1.3); Monocytes % (auto) 6.6 % (0.0-12.0); Neutrophils # (auto) 11.6 10 ^3/uL (1.6-8.6); Neutrophils % (auto) 85.1 % (37.0-80.0); Nucleated Red Blood Cells % 0.1 %; Platelet Count (auto) 336 10^3/uL (140-450); Red Blood Cells 4.43 10^6/uL (4.0-5.20); Red Cell Distribution Width 12.5 % (11.8-14.3); White Blood Cell 13.6 10^3/uL (4.4-10.8)
[2024-01-14 16:07] LABS: Potassium 4.6 mmol/L (3.5-5.1)
[2024-01-14 16:09] LABS: Calcium 10.3 mg/dL (8.7-10.4)
[2024-01-14 16:10] LABS: Chloride 97 mmol/L (98-107); Sodium 132 mmol/L (136-145)
[2024-01-14 16:13] LABS: BUN/Creatinine Ratio 7.1 (10.0-20.0); Blood Urea Nitrogen 10 mg/dL (9-23)
[2024-01-14 16:22] LABS: Glucose 129 mg/dL (74-106)
[2024-01-14 16:51] LABS: Anion Gap 8 (5-15); Carbon Dioxide 27 mmol/L (20-31)
--- NOTE | 2024-01-14 17:17 | DVH ---
Exam: CT CT AB PEL WO CON-NO ORAL OR IV History: pain Comparison Study: None Technique: Multidetector spiral CT of the abdomen was performed from lung bases to pubic symphysis. Imaging was performed without IV contrast. Axial, coronal and sagittal multiplanar reformats were ob tained from the axial data set by the technologist. Radiation Dose : 1. Abdomen/Pelvis: CTDIvol 5.5 mGy, DLP 259.66 mGy*cm. Findings: Evaluation of solid organs is limited due to lack of intravenous contrast use. Lung Bases: Linear atelectasis bilaterally. Mild coronary artery calcification. Small left-sided fat containing bochdalek hernia. Liver: 7 mm hypodense focus in the right lobe of the liver is too small to characterize but commonly represents a cyst. Gallbladder and Biliary Tree: Unremarkable Spleen: Unremarkable Pancreas: The pancreas is grossly normal in appearance. Adrenal Glands: Unremarkable Kidneys: Kidneys are grossly normal without calculi or hydronephrosis. Bladder: Grossly unremarkable for degree of distention. Bowel: Stomach is poorly distended. Probable duodenal diverticulum at the junction of the 2nd/3rd por tions of the duodenum. Small bowel and colon are normal in caliber and distribution. The appendix is not visualized; however, no secondary findings of acute appendicitis identified. Extensive sigmoid d iverticulosis without pericolonic fat stranding. There is mild wall thickening in the sigmoid colon. There is moderate colonic stool. Ascites: Absent Lymphadenopathy: No mesenteric, retroperitoneal or periportal lymphadenopathy. Abdominal Wall and Mesentery: Unremarkable. Vasculature: The visualized abdominal aorta is normal in size and caliber. Evaluation of abdominal a nd pelvic vessels is limited due to lack of intravenous contrast. Pelvic Organs: Unremarkable Musculoskeletal: No aggressive focal bony lesions, acute fractures or dislocation. Moderate multileve l degenerative disc changes in the lower thoracic spine. Moderate degenerative disc change at L3-L4. IMPRESSION: 1. Extensive sigmoid diverticulosis and possible chronic diverticulitis. No evidence of acute pericol onic fluid or inflammation. 2. No hydronephrosis or renal calculi. Radiation optimization: All CT scans at this facility use at least one of these dose optimization francisco hniques: automated exposure control mA and/or kV adjustment per patient size (includes targeted exam s where dose is matched to clinical indication) or iterative reconstruction.
[2024-01-14] MEDS ORDERED: METR-344 PO (17:47)
[2024-01-14] MEDS: metroNIDAZOLE 500 MG TAB PO ONE (17:51)
[2024-01-14 17:57] VITALS: BP 134/77; PULSE 77; RESP 17; TEMP 98.8; O2SAT 94
== END 2024-01-14 17:56 | disposition home or self-care (01) ==
LOC: ER 14:26
DX: K57.33 Diverticulitis of large intestine without perforation or abscess with bleeding (principal); F41.9 Anxiety disorder, unspecified; E78.5 Hyperlipidemia, unspecified; I10 Essential (primary) hypertension; Z79.899 Other long term (current) drug therapy; Z90.710 Acquired absence of both cervix and uterus; Z98.890 Other specified postprocedural states
CPT/HCPCS: 36415; 74176; 80048; 85025

== ENCOUNTER → 2024-01-21 | Outpatient (CLI) | payer OTHER ==
[~2024-01-21] MED LIST changes: +METR-344 PO
[2024-01-21 09:55] LABS: Basophils # (auto) 0 10 ^3/uL (0-0.2); Basophils % (auto) 0.6 % (0.0-2.0); Eosinophils # (auto) 0.2 10 ^3/uL (0-0.8); Eosinophils % (auto) 1.9 % (0.0-7.0); Hematocrit 37.7 % (36.0-46.0); Hemoglobin 13.3 g/dL (12.2-16.2); Lymphocytes # (auto) 1.2 10 ^3/uL (0.4-5.4); Lymphocytes % (auto) 14.9 % (10.0-50.0); Mean Corpuscular Hemoglobin 32.4 pg (28.0-32.0); Mean Corpuscular Hgb Conc. 35.3 g/dL (32.0-36.0); Monocytes % (auto) 11.9 % (0.0-12.0); Neutrophils # (auto) 5.7 10 ^3/uL (1.6-8.6); Neutrophils % (auto) 70.7 % (37.0-80.0); Nucleated Red Blood Cells % 0.1 %; Platelet Count (auto) 323 10^3/uL (140-450); Red Cell Distribution Width 12.8 % (11.8-14.3)
[2024-01-21 10:25] LABS: Albumin 4.3 g/dL (3.2-4.8); Alkaline Phosphatase 85 U/L (46-116); Anion Gap 8 (5-15); BUN/Creatinine Ratio 6.7 (10.0-20.0); Bilirubin, Total 0.4 mg/dL (0.2-1.0); Blood Urea Nitrogen 11 mg/dL (9-23); CRP High Sensitivity 0.33 mg/dL (<1.0); Calcium 10.1 mg/dL (8.7-10.4); Carbon Dioxide 27 mmol/L (20-31); Chloride 101 mmol/L (98-107); Potassium 4.7 mmol/L (3.5-5.1); Total Protein 6.8 g/dL (5.7-8.2)
[2024-01-21 10:48] LABS: Alanine Aminotransferase 42 U/L (7-40); Aspartate Aminotransferase 44 U/L (13-40); Glucose 114 mg/dL (74-106); Sodium 136 mmol/L (136-145)
[2024-01-21 10:54] LABS: Erythrocyte Sedimentation Rate 25 mm/hr (0-20)
== END | disposition home or self-care (01) ==
LOC: LAB 09:27
PROVIDERS: ATTEND Internal Medicine Rheumatology
DX: N18.30 Chronic kidney disease, stage 3 unspecified (principal); L40.50 Arthropathic psoriasis, unspecified; Z79.899 Other long term (current) drug therapy
CPT/HCPCS: 36415; 80053; 85025; 85652; 86141

== ENCOUNTER 2024-03-24 18:46 | Inpatient (IN) | payer OTHER ==
[~2024-03-24] VITALS: Ht 154.9 cm; Wt 60.0 kg
--- NOTE | 2024-03-24 20:04 | ED.PDOC ---
History of Present Illness HPI Comments 88-year-old female who came to ER due to headaches. Patient does have history of hypertension and CVA. Has been having episodes of headaches recently, was seen by her neurologist last week and was given prednisone. Patient has been having headaches again yesterday, occipital, constant associated with dizziness and blurring of visions. Noted elevated blood pressure at 170/93 mmHg. Patient coming in today still complaining of headaches. Chief Complaint: Headache Time Seen by MD: 20:04 Primary Care Provider: LESS Reviewed Notes: Nurses Notes Allergies: Coded Allergies: NO KNOWN ALLERGIES (Unverified , 08/20/21) Home Meds Active Scripts Metronidazole (Flagyl) 500 Mg Tab, 1 TAB PO BID, #14 TAB Prov:CYNDIE BENSON MD 01/14/24 Apixaban Base (ELIQUIS) 5 Mg Tab, 5 MG PO BID for 30 Days, #60 TAB Prov:JOSE ANGEL PRASAD MD 04/05/19 Reported Medications Cholecalciferol (VITAMIN D3) 2,000 Unit Tab, 1 TAB PO DAILY for supplement 05/08/22 Magnesium Oxide (MAGNESIUM OXIDE) 400 Mg Tab, 1 TAB PO DAILY for supplement 05/08/22 Calcium Acetate (Phosphate Bin (Calcium Acetate) 667 Mg Cap, 667 MG PO BID for bone health 05/08/22 Folic Acid (Folic Acid) 1 Mg Tab, 1 MG PO DAILY for supplement for 30 Days, MG 05/08/22 Meclizine Hcl (Meclizine Hcl) 25 Mg Tab, 25 MG PO BIDP PRN for DIZZINESS for 30 Days, MG 05/08/22 Potassium Chloride (Potassium Chloride ER) 20 Meq Tab, 20 MEQ PO HS for muscle cramps, TAB 05/08/22 Lorazepam (Lorazepam) 0.5 Mg Tab, 0.5 MG PO HS for sleep/anxiety, TAB 05/08/22 Trazodone Hcl (Trazodone Hcl) 100 Mg Tab, 100 MG PO HS PRN for FOR INSOMNIA, MG 05/08/22 Atorvastatin Calcium (ATORVASTATIN CALCIUM) 40 Mg Tab, 1 TAB PO DAILY for cholesterol 05/08/22 Metoprolol Succinate (Metoprolol Succinate Er) 50 Mg Tab, 50 MG PO DAILY for htn for 30 Days, MG 05/08/22 Amlodipine Besylate (Amlodipine Besylate) 5 Mg Tab, 5 MG PO DAILY for htn 05/08/22 Methotrexate (Methotrexate) 2.5 Mg Tab, 2.5 MG PO 3 tabs/week for psoriatic arthritis 05/08/22 Losartan Potassium (Losartan Potassium) 50 Mg Tab, 50 MG PO DAILY for htn 12/12/16 Information Source: Patient Mode of Arrival: Ambulatory Severity: Moderate Timing: Hours Duration: Since onset Review of Systems REVIEW OF SYSTEMS: No fever, no chills, or fatigue HEENT: No sore throat, no earache, no congestion, no neck pain. Cardiac: No chest pain. No palpitations. Lungs: No shortness of breath, no cough. GI: No nausea, no vomiting, no diarrhea, no constipation, no abdominal pain : No dysuria, frequency, or urgency. No hematuria. Musculoskeletal: No joint pain , no joint swelling, no extremity edema. Skin: No rash, no itching. Neuro: (+) headache, (+) dizziness, no weakness Vital Signs Vital Signs Date Time Temp Pulse Resp B/P (MAP) Pulse Ox O2 Delivery O2 Flow Rate FiO2 03/24/24 22:49 97.5 107 16 143/87 (105) 96 97.5 Physical Exam General: Awake, alert and oriented. No acute distress. Skin: Skin in warm, dry and intact. Appropriate color for ethnicity. Nailbeds pink with no cyanosis. HEENT: The head is normocephalic and atraumatic. Conjunctivae are clear without exudates or hemorrhage. Sclera is non-icteric. EOM are intact. No signs of nystagmus. Eyelids are normal in appearance without swelling or lesions. Oral mucosa is pink and moist Neck: The neck is supple with normal range of motion. No JVD. Cardiac: Heart rate and rhythm are normal. No murmurs, gallops, or rubs are a uscultated. Respiratory: No signs of respiratory distress. Lung sounds are clear in all lobes bilaterally without rales, ronchi, or wheezes. Abdominal: Abdomen is soft, non-tender without distention. Bowel sounds are present and normoactive in all four quadrants. Extremities: Upper and lower extremities are atraumatic in appearance without deformity or edema. Neurological: The patient is awake, alert and oriented to person, place, and time with normal speech. Speech is clear. There is no facial asymmetry. Psychiatric: Appropriate mood and affect. Good judgement and insight. No visual or auditory hallucinations. 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 Was a procedure done?: No EKG EKG : Pulse Rate (adult): 123 Cardiac Rhythm: ST Hypertrophy: LAE ST: Old, Inf, Infarct Differential Dx Considerations may include: Hypertensive urgency, headaches, CVA, TIA, electrolyte imbalance X-Ray, Labs, Meds, VS Vital Signs Date Time Temp Pulse Resp B/P (MAP) Pulse Ox O2 Delivery O2 Flow Rate FiO2 03/24/24 22:49 97.5 107 16 143/87 (105) 96 97.5 03/24/24 21:43 123 03/24/24 21:24 120 20 106/82 (90) 98 03/24/24 20:00 123 03/24/24 19:43 99.2 125 18 110/64 (79) 96 Lab Test 03/24/24 21:59 03/24/24 21:50 03/24/24 20:48 03/24/24 19:36 Range/Units Lactic Acid Level 1.2 0.4-2.0 mmol/L Influenza Type A Antigen Negative Negative Influenza Type B Antigen Negative Negative SARS-CoV-2 Antigen (Rapid) Negative NEGATIVE White Blood Count 20.2 H 4.4-10.8 10^3/uL Red Blood Count 4.59 4.0-5.20 10^6/uL Hemoglobin 14.5 12.2-16.2 g/dL Hematocrit 42.4 36.0-46.0 % Mean Corpuscular Volume 92.4 80.0-100.0 fL Mean Corpuscular Hemoglobin 31.5 28.0-32.0 pg Mean Corpuscular Hemoglobin Concent 34.1 32.0-36.0 g/dL Red Cell Distribution Width 13.2 11.8-14.3 % Platelet Count 488 H 140-450 10^3/uL Mean Platelet Volume 7.7 6.9-10.8 fL Neutrophils (%) (Auto) 80.6 H 37.0-80.0 % Lymphocytes (%) (Auto) 10.1 10.0-50.0 % Monocytes (%) (Auto) 8.3 0.0-12.0 % Eosinophils (%) (Auto) 0.5 0.0-7.0 % Basophils (%) (Auto) 0.5 0.0-2.0 % Neutrophils # (Auto) 16.3 H 1.6-8.6 10 ^3/uL Lymphocytes # (Auto) 2.0 0.4-5.4 10 ^3/uL Monocytes # (Auto) 1.7 H 0-1.3 10 ^3/uL Eosinophils # (Auto) 0.1 0-0.8 10 ^3/uL Basophils # (Auto) 0.1 0-0.2 10 ^3/uL Nucleated Red Blood Cells 0.1 % Sodium Level 129 L 136-145 mmol/L Potassium Level 4.6 3.5-5.1 mmol/L Chloride Level 96 L 98-107 mmol/L Carbon Dioxide Level 25 20-31 mmol/L Anion Gap 8 5-15 Blood Urea Nitrogen 15 9-23 mg/dL Creatinine 1.49 H 0.550-1.02 mg/dL Glomerular Filtration Rate Calc 33 >90 mL/min BUN/Creatinine Ratio 10.1 10.0-20.0 Serum Glucose 164 H 74-106 mg/dL Calcium Level 9.8 8.7-10.4 mg/dL Total Bilirubin 0.8 0.2-1.0 mg/dL Aspartate Amino Transferase (AST) 14 13-40 U/L Alanine Aminotransferase (ALT) 10 7-40 U/L Alkaline Phosphatase 90 46-116 U/L Total Protein 7.3 5.7-8.2 g/dL Albumin 4.7 3.2-4.8 g/dL Thyroid Stimulating Hormone (TSH) 1.80 0.55-4.78 uIU/mL POC Glucose 154 H 70-106 mg/dl Current Medications Medications (Trade) Dose Ordered Sig/Megan Route Start Time Stop Time Status Last Admin Sodium Chloride 1,000 ml @ 1,000 mls/hr Q1H ONCE IV 03/24/24 20:15 03/24/24 21:14 DC 03/24/24 20:55 Ceftriaxone Sodium 50 ml @ 100 mls/hr ONCE ONCE IV 03/24/24 21:45 03/24/24 22:14 DC 03/24/24 21:52 CT HEAD WITHOUT CONTRAST INDICATION: Headache worsening change of symptoms COMPARISON: CT STROKE CTH on DOS: 06/08/23, HEAD WITHOUT CONTRAST on DOS: 03/31/19 TECHNIQUE: CT of the head without intravenous contrast. RADIATION DOSE: CTDIvol: mGy, DLP: mGy*cm FINDINGS: There is no evidence of intracranial hemorrhage, acute infarct, extra-axial collection, mass effect, midline shift, herniation or hydrocephalus. There is a small old infarct in the left frontal lobe and very small old infarcts in bilateral cerebellum which have been present on prior studies dating back to at least March 2019. Mild chronic white matter microvascular ischemic change. Mild cerebral volume loss. Visualized paranasal sinuses and mastoid air cells are clear. Soft tissues and osseous structures are unremarkable. IMPRESSION: No acute/new intracranial abnormality identified. Time of 1ST Reevaluation: 20:00 Reevaluation 1ST: Unchanged Patient Education/Counseling: Diagnosis, Treatment Family Education/Counseling: Diagnosis, Treatment Departure 1 Departure Time of Disposition: 01:21 Impression: Primary Impression: Headache Additional Impressions: Sinus tachycardia Syncope Hyponatremia KENDY (acute kidney injury) Disposition: ADMITTED INPATIENT Condition: Stable Comments 88-year-old female who presented to the emergency department with headache. She was noted to be tachycardic with soft blood pressure of 110/64. Patient had a syncopal episode while ambulating to the bathroom which was witnessed by nurse. She was helped into a chair. No fall or injury. Leukocytosis noted, patient has been on prednisone recently. Extensive evaluation was performed in attempt to identify or rule out: (See differential diagnosis section) The following tests were ordered, and results were reviewed by me: (See diagnostic results section) The following test were independently interpreted by me: EKG I reviewed and agreed with the following test results read by other providers: CT head I reviewed the following notes from the pt's past medical encounters: N/A Additional information was gathered from interviewing the following independent historians: Patient's daughter at bedside Discussion of management or test interpretation with external physician/other qualified health career technical supervisor: N/A Addressed an acute or chronic illness that poses a threat to life or bodily func tion: Syncope, sinus tachycardia, hypotension, hyponatremia Decision regarding hospitalization or escalation of hospital level of care: Risk and benefits of admission for further treatment of patient's condition was considered. Due to patient's current clinical condition, high risk of decline and poor outcome if discharged and need for further inpatient management and monitoring, patient will be admitted to the hospital. Drug therapy requiring intensive monitoring for toxicity: N/A Parenteral controlled substances: N/A Decision regarding elective major surgery with identified patient or procedure risk factors: N/A Decision regarding emergency major surgery: N/A Decision not to resuscitate or to de-escalate care because of poor prognosis: N/A Diagnosis or treatment significantly limited by social determinants of health: N/A Critical Care Note Critical Care Time?: No Stability Stability form required: No Heart Score Heart Score: Heart Score Response (Comments) Value History N/A 0 EKG N/A 0 Age N/A 0 Risk Factors N/A 0 Troponin N/A 0 Total 0 I personally scribed for JOSEPH LOPEZ MD ([email or web address]) on 03/24/24 at 20:04. Electronically submitted by Harshal Zhou ([employer]). I personally scribed for JOSEPH LOPEZ MD ([email or web address]) on 03/24/24 at 20:48. Electronically submitted by Harshal Zhou ([employer]). I personally scribed for JOSEPH LOPEZ MD ([email or web address]) on 03/24/24 at 21:43. Electronically submitted by Harshal Zhou ([employer]). JOSEPH LOPEZ MD Mar 24, 2024 20:04
--- NOTE | 2024-03-24 20:39 | DVH ---
CT HEAD WITHOUT CONTRAST INDICATION: Headache worsening change of symptoms COMPARISON: CT STROKE CTH on DOS: 06/08/23, HEAD WITHOUT CONTRAST on DOS: 03/31/19 TECHNIQUE: CT of the head without intravenous contrast. RADIATION DOSE: CTDIvol: mGy, DLP: mGy*cm FINDINGS: There is no evidence of intracranial hemorrhage, acute infarct, extra-axial collection, mass effect, midline shift, herniation or hydrocephalus. There is a small old infarct in the left frontal lobe and very small old infarcts in bilateral cerebellum which have been present on prior studies dating back to at least March 2019. Mild chronic white matter microvascular ischemic change. Mild cerebral vo lume loss. Visualized paranasal sinuses and mastoid air cells are clear. Soft tissues and osseous structures ar e unremarkable. IMPRESSION: No acute/new intracranial abnormality identified.
[2024-03-24] MEDS: SODIUM CHLORIDE 0.9% 1,000 ML IV ONE (20:55)
[2024-03-24 21:12] LABS: Basophils # (auto) 0.1 10 ^3/uL (0-0.2); Basophils % (auto) 0.5 % (0.0-2.0); Eosinophils # (auto) 0.1 10 ^3/uL (0-0.8); Hemoglobin 14.5 g/dL (12.2-16.2)
[2024-03-24 21:15] LABS: Eosinophils % (auto) 0.5 % (0.0-7.0); Hematocrit 42.4 % (36.0-46.0); Lymphocytes % (auto) 10.1 % (10.0-50.0); Mean Corpuscular Hemoglobin 31.5 pg (28.0-32.0); Mean Corpuscular Hgb Conc. 34.1 g/dL (32.0-36.0); Mean Corpuscular Volume 92.4 fL (80.0-100.0); Monocytes # (auto) 1.7 10 ^3/uL (0-1.3); Monocytes % (auto) 8.3 % (0.0-12.0); Neutrophils # (auto) 16.3 10 ^3/uL (1.6-8.6); Neutrophils % (auto) 80.6 % (37.0-80.0); Nucleated Red Blood Cells % 0.1 %; Platelet Count (auto) 488 10^3/uL (140-450); Red Blood Cells 4.59 10^6/uL (4.0-5.20); Red Cell Distribution Width 13.2 % (11.8-14.3); White Blood Cell 20.2 10^3/uL (4.4-10.8)
[2024-03-24 21:33] LABS: Alanine Aminotransferase 10 U/L (7-40); Albumin 4.7 g/dL (3.2-4.8); Alkaline Phosphatase 90 U/L (46-116); Anion Gap 8 (5-15); Aspartate Aminotransferase 14 U/L (13-40); BUN/Creatinine Ratio 10.1 (10.0-20.0); Bilirubin, Total 0.8 mg/dL (0.2-1.0); Blood Urea Nitrogen 15 mg/dL (9-23); Calcium 9.8 mg/dL (8.7-10.4); Carbon Dioxide 25 mmol/L (20-31); Potassium 4.6 mmol/L (3.5-5.1); Total Protein 7.3 g/dL (5.7-8.2)
[2024-03-24 21:40] LABS: Chloride 96 mmol/L (98-107); Glucose 164 mg/dL (74-106); Sodium 129 mmol/L (136-145)
[2024-03-24] MEDS: cefTRIAXone 1GM/50ML D5W 50 ML IV ONE (21:52)
[2024-03-24 22:23] LABS: COVID19 ANTIGEN SOFIA FIA NEGATIVE (NEGATIVE); Rapid Influenza A Negative (Negative); Rapid Influenza B Negative (Negative)
--- NOTE | 2024-03-24 23:12 | DVH ---
EXAM: XY CHEST XRAY 1 VIEW CLINICAL HISTORY: Suspected sepsis TECHNIQUE: Single AP view of the chest WID: COMPARISON: XY CHEST XRAY 1 VIEW on DOS: 06/08/23 FINDINGS: Lines and tubes: Loop recorder device projects over the left lower chest. Chest: The heart size and pulmonary vasculature is within normal limits. Calcified plaque projects over the aortic arch No pleural effusion, pneumothorax, or consolidation. Linear bibasilar scarring or atelectasis. The osseous structures are grossly intact. IMPRESSION: No acute cardiopulmonary abnormality.
[2024-03-24] MEDS ORDERED: NITROGLYCERIN 0.4 MG SL TAB SL PRN (23:15)
[2024-03-24] MEDS ORDERED: HYDROcodone-ACET 5/325MG TAB PO PRN (23:15)
[2024-03-24] MEDS ORDERED: DOCUSATE SOD 100 MG CAP PO PRN (23:15)
[2024-03-24] MEDS ORDERED: ACETAMINOPHEN 325 MG TAB PO PRN (23:15)
[2024-03-24] MEDS ORDERED: MORPHINE SULFATE INJ 2 MG/ml SYRG IV PRN (23:15)
[2024-03-24] MEDS ORDERED: ONDANSETRON HCL 4 MG/2 ML VIAL IV PRN (23:15)
--- NOTE | 2024-03-24 23:18 | DVHHP2 ---
History of Present Illness Reason for Visit: Headache History of Present Illness The patient is a 88-year-old female with past medical history of CVA, anxiety, hyperlipidemia, and hypertension who presented to [facility] ED with complaint of headaches. Patient reports, she has been seen by neurologist last week for same symptoms and not given prednisone with no relief of symptoms, experiencing occipital headache, constant, associated with dizziness, blurry vision, getting worse that prompted this visit. Patient was seen and evaluated in the ED, laboratory data shows WBC 20.2, platelets 488, sodium 129, potassium 4.6, BUN 15, creatinine 1.49, GFR 33, glucose 164, TSH 1.80, blood pressure 143/87, heart rate 107, temperature 97.6 F, O2 saturation 96% on room air. Head CT showed no acute/new intracranial abnormality. Please see medication orders section in the computer. On my assessment, patient denied chest pain, no dizziness, no diaphoresis, no shortness breath, no nausea, no vomiting, fever, no chills. Patient was admitted for further evaluation and medical management. Past Medical History Anxiety, CVA, High Lipids, HTN Past Surgical History , Hysterectomy Family History Reviewed, noncontributory to the management of this case. Past Social History The patient lives at home, denies smoking, alcohol or illicit drugs abuse. Review of Systems Constitutional: Yes: Weakness; No: Fever, Chills, Sweats, Malaise, Other Eyes: No: Pain, Vision change, Conjunctivae inflammation, Eyelid inflammation, Other, Redness ENT: No: Ear pain, Ear discharge, Nose pain, Nose discharge, Nose congestion, Mouth pain, Mouth swelling, Throat pain, Throat swelling, Other Respiratory: No: Cough, Dry, Shortness of breath, SOB with excertion, Wheezing, Hemoptysis, Pleuritic Pain, Sputum, Wheezing, Other Cardiovascular: No: Chest Pain, Palpitations, Orthopnea, Paroxysmal Noc. Dyspnea, Edema, Lt Headedness, Other Gastrointestinal: No: Nausea, Vomiting, Abdominal Pain, Diarrhea, Constipation, Melena, Hematochezia, Other Genitourinary: No Dysuria, No Frequency, No Incontinence, No Hematuria, No Retention, No Other Musculoskeletal: No: other, neck pain, shoulder pain, arm pain, back pain, hand pain, leg pain, foot pain Skin: No: Rash, Lesions, Jaundice, Bruising, Other Neurological: Other (Dizziness, headache.); No: Weakness, Numbness, Incoordination, Change in speech, Confusion, Seizures Allergies: Coded Allergies: NO KNOWN ALLERGIES (Unverified , 08/20/21) Exam Vital Signs Vital Signs Date Time Temp Pulse Resp B/P (MAP) Pulse Ox O2 Delivery O2 Flow Rate FiO2 03/24/24 22:49 97.5 107 16 143/87 (105) 96 97.5 General Appearance: Alert, Oriented X3, Cooperative, No acute distress HEENT: Atraumatic, PERRLA, EOMI, Mucous membr. moist/pink Respiratory: Clear to auscultation, Normal air movement Cardiovascular: Regular rate, Normal S1, Normal S2, No murmurs Abdominal: Normal bowel sounds, Soft, No tenderness, No hepatospenomegaly, No masses Extremities: No clubbing, No cyanosis, No edema, Normal pulses, No tenderness/swelling Skin: No rashes, No breakdown, No significant lesion Neuro: Normal speech, Normal tone, Sensation intact, Cranial nerves 3-12 NL, Reflexes 2+, Other (Generalized weakness) Psych/Mental Status: Mental status NL, Mood NL Labs/Xrays Labs Test 03/24/24 21:59 03/24/24 21:50 03/24/24 20:48 03/24/24 19:36 Range/Units Lactic Acid Level 1.2 0.4-2.0 mmol/L Influenza Type A Antigen Negative Negative Influenza Type B Antigen Negative Negative SARS-CoV-2 Antigen (Rapid) Negative NEGATIVE White Blood Count 20.2 H 4.4-10.8 10^3/uL Red Blood Count 4.59 4.0-5.20 10^6/uL Hemoglobin 14.5 12.2-16.2 g/dL Hematocrit 42.4 36.0-46.0 % Mean Corpuscular Volume 92.4 80.0-100.0 fL Mean Corpuscular Hemoglobin 31.5 28.0-32.0 pg Mean Corpuscular Hemoglobin Concent 34.1 32.0-36.0 g/dL Red Cell Distribution Width 13.2 11.8-14.3 % Platelet Count 488 H 140-450 10^3/uL Mean Platelet Volume 7.7 6.9-10.8 fL Neutrophils (%) (Auto) 80.6 H 37.0-80.0 % Lymphocytes (%) (Auto) 10.1 10.0-50.0 % Monocytes (%) (Auto) 8.3 0.0-12.0 % Eosinophils (%) (Auto) 0.5 0.0-7.0 % Basophils (%) (Auto) 0.5 0.0-2.0 % Neutrophils # (Auto) 16.3 H 1.6-8.6 10 ^3/uL Lymphocytes # (Auto) 2.0 0.4-5.4 10 ^3/uL Monocytes # (Auto) 1.7 H 0-1.3 10 ^3/uL Eosinophils # (Auto) 0.1 0-0.8 10 ^3/uL Basophils # (Auto) 0.1 0-0.2 10 ^3/uL Nucleated Red Blood Cells 0.1 % Sodium Level 129 L 136-145 mmol/L Potassium Level 4.6 3.5-5.1 mmol/L Chloride Level 96 L 98-107 mmol/L Carbon Dioxide Level 25 20-31 mmol/L Anion Gap 8 5-15 Blood Urea Nitrogen 15 9-23 mg/dL Creatinine 1.49 H 0.550-1.02 mg/dL Glomerular Filtration Rate Calc 33 >90 mL/min BUN/Creatinine Ratio 10.1 10.0-20.0 Serum Glucose 164 H 74-106 mg/dL Calcium Level 9.8 8.7-10.4 mg/dL Total Bilirubin 0.8 0.2-1.0 mg/dL Aspartate Amino Transferase (AST) 14 13-40 U/L Alanine Aminotransferase (ALT) 10 7-40 U/L Alkaline Phosphatase 90 46-116 U/L Total Protein 7.3 5.7-8.2 g/dL Albumin 4.7 3.2-4.8 g/dL Thyroid Stimulating Hormone (TSH) 1.80 0.55-4.78 uIU/mL POC Glucose 154 H 70-106 mg/dl PATIENT: DEZ SCHNEIDER ACCT: [id number] UNIT: [id number] : 1935 LOC: ER ROOM / BED: / AGE / SEX: 88 / F ADM STATUS: REG ER SERVICE 57 ORDERING PHYSICIAN: JOSEPH LOPEZ MD PROCEDURE(s): HWOCT - HEAD WITHOUT CONTRAST REASON: Headache worsening change of symptoms ORDER NUMBER(s): [id number], ACCESSION NUMBER(s): [id number] CT HEAD WITHOUT CONTRAST INDICATION: Headache worsening change of symptoms COMPARISON: CT STROKE CTH on DOS: 06/08/23, HEAD WITHOUT CONTRAST on DOS: 03/31/19 TECHNIQUE: CT of the head without intravenous contrast. RADIATION DOSE: CTDIvol: mGy, DLP: mGy*cm FINDINGS: There is no evidence of intracranial hemorrhage, acute infarct, extra-axial collection, mass effect, midline shift, herniation or hydrocephalus. There is a small old infarct in the left frontal lobe and very small old infarcts in bilateral cerebellum which have been present on prior studies dating back to at least March 2019. Mild chronic white matter microvascular ischemic change. Mild cerebral volume loss. Visualized paranasal sinuses and mastoid air cells are clear. Soft tissues and osseous structures are unremarkable. IMPRESSION: No acute/new intracranial abnormality identified. ORDERING PHYSICIAN: JOSEPH LOPEZ MD PROCEDURE(s): CXR1 - CHEST XRAY 1 VIEW REASON: Suspected sepsis ORDER NUMBER(s): [id number], ACCESSION NUMBER(s): [id number] EXAM: XY CHEST XRAY 1 VIEW CLINICAL HISTORY: Suspected sepsis TECHNIQUE: Single AP view of the chest WID: COMPARISON: XY CHEST XRAY 1 VIEW on DOS: 06/08/23 FINDINGS: Lines and tubes: Loop recorder device projects over the left lower chest. Chest: The heart size and pulmonary vasculature is within normal limits. Calcified plaque projects over the aortic arch No pleural effusion, pneumothorax, or consolidation. Linear bibasilar scarring or atelectasis. The osseous structures are grossly intact. IMPRESSION: No acute cardiopulmonary abnormality. Assessment/Plan Assessment/Plan Headache Sinus tachycardia Syncope Hyponatremia KENDY (acute kidney injury) Leukocytosis, unspecified Generalized weakness Plan 1. Admit to telemetry unit 2. Breathing treatment 3. Pain control management 4. IV antibiotic management 5. Management of fluids and electrolytes 6. Consultation for hospitalist 7. Diagnostic test head CT 8. DVT prophylaxis on SCDs 9. Repeat labs CBC, CMP in a.m. 10. Home medication reviewed and reconciled 11. Continue with current medical management 12. Treatment plan discussed with patient and RN. Patient verbalized understanding. Plan discussed with: Patient, Other (RN) My Orders Orders - SEN CHAIREZ DNP Procedure Category Date Status Time Blood Culture LISET 03/24/24 Verified 23:12 Carvedilol Tablet PHA 03/25/24 Verified (Coreg Tablet) 10:00 Amlodipine Tablet PHA 03/25/24 Verified (Norvasc Tablet) 10:00 Atorvastatin (Lipitor) PHA 03/25/24 Verified 22:00 Problem List: (1) Headache (2) Leukocytosis, unspecified (3) Syncope (4) Hyponatremia (5) Sinus tachycardia (6) KENDY (acute kidney injury) (7) Generalized weakness Date of Service: Mar 24, 2024 Billing Provider: SEN CHAIREZ DNP Common Visit Codes: [id number] INP/OBS CARE (HIGH) SEN CHAIREZ DNP Mar 24, 2024 23:18
[2024-03-25] VITALS (9 sets, daily range): BP systolic 134–156; BP diastolic 66–83; PULSE 70–93; RESP 17–20; TEMP 97.9–99; O2SAT 93–95
[2024-03-25] MEDS: SODIUM CHLORIDE 0.9% 1,000 ML IV SCH (01:18)
[2024-03-25 04:37] LABS: Urine Bacteria None Seen /hpf (None Seen)
[2024-03-25 04:42] LABS: Urine Blood Negative /uL (Negative); Urine Clarity Clear (Clear); Urine Color Light-Yellow (Yellow); Urine Protein, UAD Negative (Negative); Urine Specific Gravity 1.008 (1.001-1.035); Urine Squamous Epithelial Cell FEW /hpf (<5); Urine Urobilinogen Normal (Negative); Urine WBC 1 /HPF (0-5); Urine pH 6.5 (5.0-9.0)
[2024-03-25 06:52] LABS: Basophils # (auto) 0 10 ^3/uL (0-0.2); Basophils % (auto) 0.1 % (0.0-2.0); Eosinophils # (auto) 0.1 10 ^3/uL (0-0.8); Eosinophils % (auto) 0.7 % (0.0-7.0); Hematocrit 33.9 % (36.0-46.0); Hemoglobin 11.5 g/dL (12.2-16.2); Lymphocytes # (auto) 1.6 10 ^3/uL (0.4-5.4); Mean Corpuscular Hemoglobin 31.5 pg (28.0-32.0); Mean Corpuscular Hgb Conc. 34.1 g/dL (32.0-36.0); Mean Corpuscular Volume 92.4 fL (80.0-100.0); Monocytes # (auto) 0.9 10 ^3/uL (0-1.3); Monocytes % (auto) 7.3 % (0.0-12.0); Neutrophils # (auto) 9.8 10 ^3/uL (1.6-8.6); Neutrophils % (auto) 78.9 % (37.0-80.0); Platelet Count (auto) 345 10^3/uL (140-450); Red Blood Cells 3.67 10^6/uL (4.0-5.20); Red Cell Distribution Width 12.7 % (11.8-14.3); White Blood Cell 12.5 10^3/uL (4.4-10.8)
[2024-03-25 07:06] LABS: Alkaline Phosphatase 71 U/L (46-116); Anion Gap 8 (5-15); BUN/Creatinine Ratio 13.9 (10.0-20.0); Blood Urea Nitrogen 16 mg/dL (9-23); Calcium 8.9 mg/dL (8.7-10.4); Carbon Dioxide 24 mmol/L (20-31); Chloride 101 mmol/L (98-107)
[2024-03-25 07:07] LABS: Alanine Aminotransferase < 9 U/L (7-40); Aspartate Aminotransferase 12 U/L (13-40); Glucose 119 mg/dL (74-106); Sodium 133 mmol/L (136-145)
[2024-03-25 07:08] LABS: Albumin 3.8 g/dL (3.2-4.8); Bilirubin, Total 0.5 mg/dL (0.2-1.0); Total Protein 5.8 g/dL (5.7-8.2)
--- NOTE | 2024-03-25 08:23 | ECG ---
[facility] Test Date: 2024-03-24 Test Time: 20:00:40 Pat Name: DEZ SCHNEIDER Department: ER Room: 0222T A Gender: F Front Desk Specialist: CRISTOBAL : 1935 Requested By: JOSEPH LOPEZ Order Number: [id number] Reading MD: Mundo Rodrigues Measurements Intervals [place] Rate: 123 P: 18 NH: 139 QRS: -60 QRSD: 79 T: 42 QT: 295 QTc: 422 Interpretive Statements Sinus tachycardia Probable left atrial enlargement Abnormal R-wave progression, late transition Inferior infarct, old Electronically Signed On 03-25-2024 12:11:43 PST by Mundo Rodrigues Please click the below link to view image of tracing.
[2024-03-25] MEDS: CARVEDILOL 12.5 MG TAB PO SCH (09:55)
[2024-03-25] MEDS: amLODIPine BESYLATE 5 MG TAB PO SCH (09:56)
[2024-03-25] MEDS: APIXABAN 5 MG TAB PO SCH (09:56)
[2024-03-25] MEDS: LORazepam 2MG/ML-1ML VIAL IV ONE ×2 (12:55→20:54)
[2024-03-25] MEDS: ACETAMINOPHEN 325 MG TAB PO SCH (14:06)
[2024-03-25] MEDS: predniSONE 20 MG TAB PO ONE (15:45)
[2024-03-25] MEDS ORDERED: IOHEXOL 300 MG/ML 100ML BOTTLE IJ ONE (17:32)
--- NOTE | 2024-03-25 20:18 | DVH ---
CT Neck with Contrast CLINICAL HISTORY: abscess TECHNIQUE: CT of the neck was performed with 100 ml of omnipaque 300 administered intravenously. This exam was performed according to our departmental dose optimization program. Up-to-date CT equipment and radiation dose reduction techniques are utilized as appropriate. [Radimetrics Exposure Report] WID: COMPARISON: None Neck findings: Brain and Orbits: Small chronic appearing bilateral cerebellar infarcts. Mild cerebral volume loss. Mild patchy low attenuation in the cerebral white matter consistent with nonspecific white matter dis ease. Prior left ocular lens replacement. Sinuses and Mastoids: The visualized paranasal sinuses and mastoid air cells are clear. Parotid and Submandibular Glands: The parotid and submandibular glands appear unremarkable. Cervical Lymph Nodes: No significant cervical adenopathy is seen. Thyroid: No significant thyroid abnormalities are seen. Larynx and Hypopharynx: The larynx and hypopharynx appear normal. Oral Cavity, Oropharynx, and Nasopharynx: The base of the tongue, oropharyngeal region, and posterior nasopharynx appear unremarkable. Cervical Vasculature: Calcified plaque in the bilateral internal carotid and left vertebral intracran ial arteries. Moderate mixed atherosclerotic plaque in the aortic arch. Mild mixed atherosclerotic pl aque in the bilateral carotid bifurcations. Osseous Structures: Chronic appearing distal right clavicle fracture multilevel cervical spondylosis Visualized Upper Lungs: Sub 5 mm nodule in the right upper lobe along the right major fissure. Lungs are otherwise clear. IMPRESSION: 1. No well-formed fluid collection to suggest abscess. No lymphadenopathy. 2. Small chronic appearing bilateral cerebellar infarcts 3. Mild cerebral volume loss and mild chronic microvascular ischemic change.
--- NOTE | 2024-03-25 20:38 | DVHPN2 ---
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 also have pain with swallowing and jaw movement. Physical exam Alert oriented x3 PERRLA CN II-XII intact TMJ tenderness no nuchal rigidity stiff neck and shoulder muscles decreased ROM in neck and jaw no temporal tenderness clear breath sounds s1 s2 RRR abdomen soft nontender trace LE edema equal UE and LE strength bilaterally sensory intact to touch labs, imaging reviewed Assessment and plan Tension headache TMJ vs trigerminal neuralgia ruled out mehreen's angina clinically ruled out meningitis hypertension KENDY likely VMN on CKD decreased oral intake odynophagia from oral trush? from prednisone? cervical spondylolysis prednisone tylenol ativan once, flexeril CT neck, CT head clear IV bolus + maintenance resume home antiHTN nystatin ensure neuro consult MRI C spine diet cardiac dvt ppx lovenox Plan discussed with: Patient My Orders Orders - HEATHER BUNN MD Procedure Category Date Status Time Acetaminophen Tablet PHA 03/25/24 In Process (Tylenol Tablet) 14:[address] 03/25/24 Resulted Soft 15:29 Cyclobenzaprine PHA 03/25/24 In Process Tablet (Flexeril 22:00 Prednisone Tablet PHA 03/26/24 In Process 10:00 Basic Metabolic Panel LAB 03/26/24 Verified 04:00 Complete Blood Count LAB 03/26/24 Verified 04:00 Magnesium LAB 03/26/24 Verified 04:00 Phosphorus LAB 03/26/24 Verified 04:00 Date of Service: Mar 25, 2024 Billing Provider: HEATHER BUNN MD Common Visit Codes: [id number] INP/OBS CARE(HIGH) HEATHER BUNN MD Mar 25, 2024 20:38
[2024-03-25] MEDS: ATORVASTATIN 20 MG TAB PO SCH (20:53)
[2024-03-25] MEDS: CYCLOBENZAPRINE HCL 10 MG TAB PO SCH (20:54)
[2024-03-25] MEDS: cefTRIAXone 1GM/50ML D5W 50 ML IV SCH (20:55)
[2024-03-25] MEDS: NYSTATIN (MOUTH-THROAT) 500,000 UNITS/5 ML SUSP MT SCH (22:00)
[2024-03-26 04:59] VITALS: BP 133/70; PULSE 94; RESP 18; TEMP 98.2; O2SAT 94
[2024-03-26 06:53] LABS: Basophils # (auto) 0 10 ^3/uL (0-0.2); Basophils % (auto) 0.3 % (0.0-2.0); Eosinophils # (auto) 0.3 10 ^3/uL (0-0.8); Eosinophils % (auto) 2.6 % (0.0-7.0); Hematocrit 34.4 % (36.0-46.0); Lymphocytes # (auto) 1.4 10 ^3/uL (0.4-5.4); Lymphocytes % (auto) 13.6 % (10.0-50.0); Mean Corpuscular Hemoglobin 31.9 pg (28.0-32.0); Mean Corpuscular Hgb Conc. 34.9 g/dL (32.0-36.0); Mean Corpuscular Volume 91.6 fL (80.0-100.0); Monocytes # (auto) 1.1 10 ^3/uL (0-1.3); Monocytes % (auto) 10.3 % (0.0-12.0); Neutrophils # (auto) 7.8 10 ^3/uL (1.6-8.6); Neutrophils % (auto) 73.2 % (37.0-80.0); Platelet Count (auto) 322 10^3/uL (140-450); Red Blood Cells 3.76 10^6/uL (4.0-5.20); Red Cell Distribution Width 12.9 % (11.8-14.3); White Blood Cell 10.6 10^3/uL (4.4-10.8)
[2024-03-26 07:03] LABS: Anion Gap 8 (5-15); Carbon Dioxide 24 mmol/L (20-31); Chloride 102 mmol/L (98-107)
[2024-03-26 07:09] LABS: BUN/Creatinine Ratio 12.3 (10.0-20.0); Blood Urea Nitrogen 13 mg/dL (9-23); Glucose 94 mg/dL (74-106)
[2024-03-26 07:11] LABS: Phosphorus 3.2 mg/dL (2.4-5.1)
[2024-03-26 07:14] LABS: Sodium 134 mmol/L (136-145)
--- NOTE | 2024-03-26 09:01 | DVHPN2 ---
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 also have pain with swallowing and jaw movement. seen during rounds, improving but still symptomatic mostly on jaw pain. pending MRI. refusing pain management Physical exam Alert oriented x3 PERRLA CN II-XII intact TMJ tenderness no nuchal rigidity stiff neck and shoulder muscles decreased ROM in neck and jaw no temporal tenderness clear breath sounds s1 s2 RRR abdomen soft nontender trace LE edema equal UE and LE strength bilaterally sensory intact to touch labs, imaging reviewed Assessment and plan Tension headache TMJ vs trigerminal neuralgia ruled out mehreen's angina clinically ruled out meningitis hypertension KENDY likely VMN on CKD decreased oral intake odynophagia from oral trush? from prednisone? cervical spondylolysis prednisone tylenol ativan once, flexeril CT neck, CT head clear IV bolus + maintenance resume home antiHTN nystatin ensure neuro consult MRI C spine diet cardiac dvt ppx lovenox Plan discussed with: Patient My Orders Orders - HEATHER BUNN MD Procedure Category Date Status Time Acetaminophen Tablet PHA 03/25/24 In Process (Tylenol Tablet) 14:[address] 03/25/24 Resulted Soft 15:29 Cyclobenzaprine PHA 03/25/24 In Process Tablet (Flexeril 22:00 Prednisone Tablet PHA 03/26/24 In Process 10:00 Morphine Sulfate PHA 03/25/24 In Process Injection 20:45 Nystatin PHA 03/25/24 In Process (Mouth-Throat) 22:00 Cervical Wo Contrast MRI 03/26/24 Logged 20:38 Date of Service: Mar 26, 2024 Billing Provider: HEATHER BUNN MD Common Visit Codes: [id number] INP/OBS CARE(HIGH) HEATHER BUNN MD Mar 26, 2024 09:01
[2024-03-26 09:16] VITALS: BP 141/89; PULSE 103; RESP 18
[2024-03-26] MEDS: MORPHINE SULFATE INJ 2 MG/ml SYRG IV PRN (09:16)
[2024-03-26] MEDS: predniSONE 20 MG TAB PO SCH (09:20)
--- NOTE | 2024-03-26 12:54 | DVHDS2 ---
Discharge Summary Date of Admission Mar 24, 2024 at 23:12 Date of Discharge: Mar 26, 2024 Labs/Diagnostic Data: Laboratory Results Test 03/26/24 05:43 03/25/24 06:01 03/25/24 01:30 03/24/24 21:59 White Blood Count 10.6 10^3/uL (4.4-10.8) Red Blood Count 3.76 10^6/uL (4.0-5.20) Hemoglobin 12.0 g/dL (12.2-16.2) Hematocrit 34.4 % (36.0-46.0) Mean Corpuscular Volume 91.6 fL (80.0-100.0) Mean Corpuscular Hemoglobin 31.9 pg (28.0-32.0) Mean Corpuscular Hemoglobin Concent 34.9 g/dL (32.0-36.0) Red Cell Distribution Width 12.9 % (11.8-14.3) Platelet Count 322 10^3/uL (140-450) Mean Platelet Volume 7.8 fL (6.9-10.8) Neutrophils (%) (Auto) 73.2 % (37.0-80.0) Lymphocytes (%) (Auto) 13.6 % (10.0-50.0) Monocytes (%) (Auto) 10.3 % (0.0-12.0) Eosinophils (%) (Auto) 2.6 % (0.0-7.0) Basophils (%) (Auto) 0.3 % (0.0-2.0) Neutrophils # (Auto) 7.8 10 ^3/uL (1.6-8.6) Lymphocytes # (Auto) 1.4 10 ^3/uL (0.4-5.4) Monocytes # (Auto) 1.1 10 ^3/uL (0-1.3) Eosinophils # (Auto) 0.3 10 ^3/uL (0-0.8) Basophils # (Auto) 0 10 ^3/uL (0-0.2) Nucleated Red Blood Cells 0.0 % Sodium Level 134 mmol/L (136-145) Potassium Level 4.0 mmol/L (3.5-5.1) Chloride Level 102 mmol/L (98-107) Carbon Dioxide Level 24 mmol/L (20-31) Anion Gap 8 (5-15) Blood Urea Nitrogen 13 mg/dL (9-23) Creatinine 1.06 mg/dL (0.550-1.02) Glomerular Filtration Rate Calc 50 mL/min (>90) BUN/Creatinine Ratio 12.3 (10.0-20.0) Serum Glucose 94 mg/dL (74-106) Calcium Level 9.0 mg/dL (8.7-10.4) Phosphorus Level 3.2 mg/dL (2.4-5.1) Magnesium Level 2.0 mg/dL (1.6-2.6) Total Bilirubin 0.5 mg/dL (0.2-1.0) Aspartate Amino Transferase (AST) 12 U/L (13-40) Alanine Aminotransferase (ALT) < 9 U/L (7-40) Alkaline Phosphatase 71 U/L (46-116) Total Protein 5.8 g/dL (5.7-8.2) Albumin 3.8 g/dL (3.2-4.8) Urine Color Light-yellow (Yellow) Urine Clarity Clear (Clear) Urine pH 6.5 (5.0-9.0) Urine Specific [place] 1.008 (1.001-1.035) Urine Protein Negative (Negative) Urine Ketones Trace (Negative) Urine Blood Negative /uL (Negative) Urine Nitrite Negative (Negative) Urine Bilirubin Negative (Negative) Urine Urobilinogen Normal mg/dL (Negative) Urine Leukocyte Esterase Trace /uL (Negative) Urine RBC <1 /hpf (0 - 4) Urine Microscopic WBC 1 /HPF (0-5) Urine Squamous Epithelial Cells Few /hpf (<5) Urine Bacteria None seen /hpf (None Seen) Urine Glucose Normal mg/dL (Normal) Lactic Acid Level 1.2 mmol/L (0.4-2.0) Test 03/24/24 21:50 03/24/24 20:48 03/24/24 19:36 Influenza Type A Antigen Negative (Negative) Influenza Type B Antigen Negative (Negative) SARS-CoV-2 Antigen (Rapid) Negative (NEGATIVE) Thyroid Stimulating Hormone (TSH) 1.80 uIU/mL (0.55-4.78) POC Glucose 154 mg/dl (70-106) Other Laboratory Tests 03/26/24 05:43 Brief Hx & Hospital Course: 88 yo F admitted for headache, on my assessment patient have more jaw pain and neck pain. Given medication for muscle relaxant, tylenol, morphine. Patient was given prednisone by neuro which improves the pain but later returned after stopping prednisone. Seh also complained of throat pain. She has been refusing prednisone, flexeril and tylenol. Studies done to r/o mehreen's, also plan to MRI neck however patient left AMA before full workup could be done. Condition at Discharge: Fair Final Diagnosis/Problems List acute on chronic cervicalgia Discharge Disposition: AMA 39 Discharge Statement: "Patient was advised to return to the ER or call 911 if any headaches, dizziness, shortness of breath, chest pain, abdominal pain, bleeding, fevers, or worsening of medical condition. Patient was counseled about treatment plan, medications, possible side effects, patientverbalized understanding. All questions were answered to the best of my ability. This discharge took greater then 30 minutes in planning, reviewing documentation, counseling the patient, and discussing with other team members." ASSESSMENT ASSESSMENT Assessment Tension headache TMJ vs trigerminal neuralgia ruled out mehreen's angina clinically ruled out meningitis hypertension KENDY likely VMN on CKD decreased oral intake odynophagia from oral trush? from prednisone? cervical spondylolysis chronic Date of Service: Mar 26, 2024 Billing Provider: HEATHER BUNN MD Common Visit Codes: [id number] DISCH DAY >30min HEATHER BUNN MD Mar 26, 2024 12:54
== END 2024-03-26 12:39 | disposition left against medical advice (07) | DRG 102 ==
LOC: ER 18:46 → TELE 23:12 → TELE-CENTR 23:18
PROVIDERS: ADMIT Nurse Practitioner Family; ATTEND Student in an Organized Health Care Education/Training Program
DX: G44.209 Tension-type headache, unspecified, not intractable (principal); N17.0 Acute kidney failure with tubular necrosis; E87.1 Hypo-osmolality and hyponatremia; M43.02 Spondylolysis, cervical region; Z20.822 Contact with and (suspected) exposure to COVID-19; Z53.29 Procedure and treatment not carried out because of patient's decision for other reasons; D72.829 Elevated white blood cell count, unspecified; I12.9 Hypertensive chronic kidney disease with stage 1 through stage 4 chronic kidney disease, or unspecified chronic kidney disease; E78.5 Hyperlipidemia, unspecified; R13.10 Dysphagia, unspecified; G89.29 Other chronic pain; F41.9 Anxiety disorder, unspecified; N18.9 Chronic kidney disease, unspecified; Z90.710 Acquired absence of both cervix and uterus; Z86.73 Personal history of transient ischemic attack (TIA), and cerebral infarction without residual deficits; Z79.899 Other long term (current) drug therapy; M54.2 Cervicalgia; G50.0 Trigeminal neuralgia
CPT/HCPCS: 36415; 70450; 70491; 71045; 80048; 80053; 81001; 82962; 83605; 83735; 84100; 84443; 85025; 87040; 87426; 87804; 93005; 96361; 96365; G0378

== ENCOUNTER → 2024-05-05 | Outpatient (CLI) | payer OTHER ==
[2024-05-05 10:34] LABS: Basophils # (auto) 0 10 ^3/uL (0-0.2); Basophils % (auto) 0.4 % (0.0-2.0); Eosinophils # (auto) 0.3 10 ^3/uL (0-0.8); Hematocrit 35.2 % (36.0-46.0); Hemoglobin 11.9 g/dL (12.2-16.2); Lymphocytes # (auto) 1.3 10 ^3/uL (0.4-5.4); Lymphocytes % (auto) 14.9 % (10.0-50.0); Mean Corpuscular Hemoglobin 31.4 pg (28.0-32.0); Mean Corpuscular Hgb Conc. 33.8 g/dL (32.0-36.0); Mean Corpuscular Volume 92.9 fL (80.0-100.0); Monocytes # (auto) 0.6 10 ^3/uL (0-1.3); Monocytes % (auto) 7.4 % (0.0-12.0); Neutrophils # (auto) 6.4 10 ^3/uL (1.6-8.6); Neutrophils % (auto) 74.3 % (37.0-80.0); Platelet Count (auto) 290 10^3/uL (140-450); Red Cell Distribution Width 15.4 % (11.8-14.3); White Blood Cell 8.6 10^3/uL (4.4-10.8)
[2024-05-05 10:39] LABS: Alanine Aminotransferase 18 U/L (7-40); Albumin 4.4 g/dL (3.2-4.8); Alkaline Phosphatase 80 U/L (46-116); Anion Gap 6 (5-15); Aspartate Aminotransferase 21 U/L (13-40); BUN/Creatinine Ratio 9.7 (10.0-20.0); Blood Urea Nitrogen 13 mg/dL (9-23); Calcium 10.3 mg/dL (8.7-10.4); Carbon Dioxide 29 mmol/L (20-31); Chloride 104 mmol/L (98-107); Creatine Kinase IFCC 41 U/L (34-145); Glucose 100 mg/dL (74-106); Potassium 3.9 mmol/L (3.5-5.1); Sodium 139 mmol/L (136-145); Total Protein 6.7 g/dL (5.7-8.2)
[2024-05-05 10:40] LABS: CRP High Sensitivity 0.48 mg/dL (<1.0)
[2024-05-05 10:41] LABS: Bilirubin, Total 0.5 mg/dL (0.2-1.0)
[2024-05-05 11:22] LABS: Erythrocyte Sedimentation Rate 22 mm/hr (0-20)
== END | disposition home or self-care (01) ==
LOC: LAB 10:03
PROVIDERS: ATTEND Internal Medicine Rheumatology
DX: N18.30 Chronic kidney disease, stage 3 unspecified (principal); L40.50 Arthropathic psoriasis, unspecified; Z79.899 Other long term (current) drug therapy
CPT/HCPCS: 36415; 80053; 82550; 85025; 85652; 86141

== ENCOUNTER → 2024-05-26 | Outpatient (CLI) | payer OTHER ==
[2024-05-26 09:57] LABS: Basophils # (auto) 0.1 10 ^3/uL (0-0.2); Basophils % (auto) 0.7 % (0.0-2.0); Eosinophils # (auto) 0.1 10 ^3/uL (0-0.8); Eosinophils % (auto) 1.1 % (0.0-7.0); Hematocrit 41.7 % (36.0-46.0); Lymphocytes # (auto) 1.2 10 ^3/uL (0.4-5.4); Lymphocytes % (auto) 15.8 % (10.0-50.0); Mean Corpuscular Hemoglobin 31.3 pg (28.0-32.0); Mean Corpuscular Hgb Conc. 33.5 g/dL (32.0-36.0); Mean Corpuscular Volume 93.6 fL (80.0-100.0); Monocytes # (auto) 0.6 10 ^3/uL (0-1.3); Monocytes % (auto) 7.5 % (0.0-12.0); Neutrophils # (auto) 5.9 10 ^3/uL (1.6-8.6); Neutrophils % (auto) 74.9 % (37.0-80.0); Platelet Count (auto) 315 10^3/uL (140-450); Red Blood Cells 4.45 10^6/uL (4.0-5.20); Red Cell Distribution Width 15.6 % (11.8-14.3); White Blood Cell 7.8 10^3/uL (4.4-10.8)
[2024-05-26 10:51] LABS: Erythrocyte Sedimentation Rate 10 mm/hr (0-20)
[2024-05-26 10:54] LABS: Alanine Aminotransferase 21 U/L (7-40); Albumin 4.7 g/dL (3.2-4.8); Alkaline Phosphatase 72 U/L (46-116); Anion Gap 9 (5-15); Aspartate Aminotransferase 28 U/L (13-40); BUN/Creatinine Ratio 10.2 (10.0-20.0); Blood Urea Nitrogen 14 mg/dL (9-23); Calcium 10.7 mg/dL (8.7-10.4); Carbon Dioxide 25 mmol/L (20-31); Chloride 103 mmol/L (98-107); Glucose 90 mg/dL (74-106); Potassium 4.2 mmol/L (3.5-5.1); Sodium 137 mmol/L (136-145); Total Protein 7.2 g/dL (5.7-8.2)
[2024-05-26 10:55] LABS: Bilirubin, Total 0.6 mg/dL (0.2-1.0)
[2024-05-26 16:42] LABS: CRP High Sensitivity 0.26 mg/dL (<1.0)
[2024-05-26 16:54] LABS: Cholesterol 270 mg/dL (< 200); HDL Cholesterol 93 mg/dL (40-59); LDL Cholesterol 149 mg/dL (< 100); Triglycerides 214 mg/dL (< 150)
[2024-05-27 12:41] LABS: Hepatitis A Total Antibody Positive (Negative); Hepatitis B Core Total AB Negative (Negative); Hepatitis B Surface Antibody Negative (Negative); Hepatitis B Surface Antigen Negative (Negative)
[2024-05-27 12:42] LABS: Hepatitis C Antibody Negative (Negative)
== END | disposition home or self-care (01) ==
LOC: LAB 09:22
PROVIDERS: ATTEND Internal Medicine Rheumatology
DX: L40.50 Arthropathic psoriasis, unspecified (principal); M31.5 Giant cell arteritis with polymyalgia rheumatica; Z79.899 Other long term (current) drug therapy
CPT/HCPCS: 36415; 80053; 80061; 85025; 85652; 86141; 86704; 86706; 86708; 86803; 87340

== ENCOUNTER 2024-08-05 09:23 | Outpatient (CLI) | payer OTHER ==
[2024-08-05 09:44] LABS: Basophils # (auto) 0 10 ^3/uL (0-0.2); Basophils % (auto) 0.4 % (0.0-2.0); Eosinophils # (auto) 0.1 10 ^3/uL (0-0.8); Hematocrit 41.4 % (36.0-46.0); Hemoglobin 14.2 g/dL (12.2-16.2); Lymphocytes # (auto) 1.6 10 ^3/uL (0.4-5.4); Lymphocytes % (auto) 16.3 % (10.0-50.0); Mean Corpuscular Hemoglobin 31.3 pg (28.0-32.0); Mean Corpuscular Hgb Conc. 34.2 g/dL (32.0-36.0); Mean Corpuscular Volume 91.3 fL (80.0-100.0); Monocytes # (auto) 0.7 10 ^3/uL (0-1.3); Monocytes % (auto) 7.5 % (0.0-12.0); Neutrophils # (auto) 7.3 10 ^3/uL (1.6-8.6); Neutrophils % (auto) 74.8 % (37.0-80.0); Platelet Count (auto) 252 10^3/uL (140-450); Red Blood Cells 4.53 10^6/uL (4.0-5.20); Red Cell Distribution Width 13.7 % (11.8-14.3); White Blood Cell 9.8 10^3/uL (4.4-10.8)
[2024-08-05 10:08] LABS: Erythrocyte Sedimentation Rate 8 mm/hr (0-20)
[2024-08-05 10:16] LABS: Alanine Aminotransferase 21 U/L (7-40); Albumin 4.3 g/dL (3.2-4.8); Alkaline Phosphatase 60 U/L (46-116); Anion Gap 8 (5-15); Aspartate Aminotransferase 23 U/L (<34); BUN/Creatinine Ratio 11.9 (10.0-20.0); Bilirubin, Total 0.6 mg/dL (0.2-1.0); Blood Urea Nitrogen 19 mg/dL (9-23); CRP High Sensitivity 0.03 mg/dL (<1.0); Calcium 10.3 mg/dL (8.7-10.4); Carbon Dioxide 28 mmol/L (20-31); Chloride 107 mmol/L (98-107); Glucose 87 mg/dL (74-106); Potassium 4.1 mmol/L (3.5-5.1); Sodium 143 mmol/L (136-145); Total Protein 6.5 g/dL (5.7-8.2)
== END 2024-08-05 17:00 | disposition home or self-care (01) ==
LOC: LAB 09:23
PROVIDERS: ATTEND Internal Medicine Rheumatology
DX: L40.50 Arthropathic psoriasis, unspecified (principal); Z79.899 Other long term (current) drug therapy
CPT/HCPCS: 36415; 80053; 85025; 85652; 86141